=== PATIENT | female | born 1960 | race Caucasian/White ===

== ENCOUNTER 2017-04-16 09:26 | Day surgery (SDC) | payer OTHER ==
[~2017-04-16 09:26] MED LIST: Buffered Lidocaine 0.9% SYRIN* 5 ML/SYR SYRINGE INTRADERM ONE
[2017-04-16] MEDS ORDERED: ceFAZolin 2 GM PREMIX (*) 2 GM/50 ML BAG IVPB ONE (09:32)
[2017-04-16] MEDS ORDERED: Buffered Lidocaine 0.9% SYRIN* 5 ML/SYR SYRINGE ONE (09:32)
[2017-04-16] MEDS ORDERED: Midazolam* 1 MG/ML 2 ML VIAL (2 MG) ONE (09:43)
[2017-04-16] MEDS ORDERED: fentaNYL* 50 MCG/ML 2 ML VIAL (100 MCG VIAL) ONE (09:43)
[2017-04-16] MEDS ORDERED: Famotidine IV* 10 MG/ML 2 ML (20 mg) ONE (10:10)
[2017-04-16] MEDS ORDERED: Famotidine IV* 10 MG/ML 2 ML (20 mg) IV SLOW PU ONE (10:13)
[2017-04-16] MEDS ORDERED: DiMENhydriNATE IV* 50 MG/ML VIAL IV PUSH PRN (10:14)
[2017-04-16] MEDS ORDERED: oxyCODONE TAB* 5 MG TAB PO PRN (10:14)
[2017-04-16] MEDS ORDERED: Naloxone* 0.4 MG/ML 1 ML VIAL IV PRN (10:14)
[2017-04-16] MEDS ORDERED: Acetaminophen TAB* 325 MG PO PRN (10:14)
[2017-04-16] MEDS ORDERED: Bupivacaine 0.25% SDV* 30 ML ONE (10:23)
[2017-04-16] MEDS ORDERED: KETAMINE HCL* 50 MG/ML 10 ML VIAL ONE (10:58)
[2017-04-16] MEDS ORDERED: Ondansetron INJ* 2 MG/ML VIAL ONE (11:01)
[2017-04-16] MEDS ORDERED: Dexamethasone IV* 4 MG/ML 1 ML (4 MG) ONE (11:01)
[2017-04-16] MEDS ORDERED: Propofol* 10 MG/ML 20 ML BTL IV PUSH ONE ×2 (11:01→11:36)
[2017-04-16] MEDS ORDERED: Lidocaine 2% PF * 5 ML VIAL ONE (11:01)
[2017-04-16] MEDS ORDERED: Ketorolac INJ* 30 MG/ML 1 ML VIAL ONE (11:01)
[2017-04-16 12:57] VITALS: BP 101/59
--- NOTE | 2017-04-17 11:15 | OP ---
DATE OF OPERATION: 04/16/17 - [facility] DATE OF : 62 SURGEON: Joo Kumar MD JUNIOR PROJECT COORDINATOR: MARILIN Pruett. An mailroom assistant was needed for the entirety of the procedure to aide in positioning of the arm and retraction. ANESTHESIOLOGIST: Dr. Beltran. ANESTHESIA: Local MAC. PRE-OP DIAGNOSES: Significant left median nerve neuritis secondary to endoscopic carpal tunnel release followed by mini-open carpal tunnel release. POST-OP DIAGNOSES: Significant left median nerve neuritis secondary to endoscopic carpal tunnel release followed by mini-open carpal tunnel release with compression of the median nerve under the transverse carpal ligament. OPERATIVE PROCEDURE: Left revision carpal tunnel release with nerve wrapping via Avance nerve wrap and hypothenar fat pad transfer. INDICATIONS: Karley had a couple of attempts to release the carpal tunnel. She has been left with terrible neuritic pain in the median nerve distribution. It has been about 6 months since last surgery. She is not improving whatsoever. All of her prior incisions were very small. The first attempt was endoscopic. The second was a very small incision in the palm. I talked to her about doing a full extensile approach to release the carpal tunnel and to do neurolysis. If there is an injury to the median nerve, I would repair with a graft; otherwise, I would plan on wrapping the nerve and doing a hypothenar fat pat transfer. She understood the risks and benefits. She wanted to proceed. She understands there is a chance that she still have neuritic-type pain. ESTIMATED BLOOD LOSS: 2 mL. COMPLICATIONS: None. FINDINGS: There was a 1-cm segment where the nerve is very compressed right under the transverse carpal ligament creating an hourglass type shape to the nerve. DESCRIPTION OF PROCEDURE: Karley was seen in the preoperative holding area. The correct side, site, and procedure were identified. We came back to the operating room. She got some anesthesia, I infiltrated 0.25% plain Marcaine. The arm was prepped and draped in the usual fashion and time-out was performed. I began by making incorporating the prior incision in the palm into a longitudinal incision over the carpal tunnel. This was brought back in Prashanth- type fashion over the ulnar side of the wrist. Dissection was carried down, the fascia proximally was released, exposing the nerve proximally. This was carried down through the carpal tunnel where all the fascia and scar tissue was released to expose the median nerve. There was an area of about a cm to 2 cm right over the carpal tunnel where the nerve was very tight and the never was frankly compressed after I released it. Release was carried into the palm. I then worked through in the scar tissue and performed a complete neurolysis of the median nerve all the way from where it branched the common digital nerves up to the distal forearm area. The motor branch was identified. This was protected throughout the course. I went ahead and performed a complete neurolysis of the median nerve. The motor branch was identified and protected throughout the entirety of the case. I was clear the median nerve could not have been cut all the way down to third common digital nerve. There was the segment where it was hourglass shaped where it had been frankly compressed. At this point, the neurolysis was done. I had a couple of vessel loops around the nerve. I went ahead and measured the nerve and selected a 7 mm x 40 mm Avance nerve wrap. This was opened up and moistened and then placed around the nerve with a background in place. I went ahead and set appropriate tension and then I secured the proximal end of the nerve wrap edges together with one 9-0 nylon suture. I then secured the edges of the distal nerve wrap with another 9-0 nylon suture. This was all done with using 3.5 mm loop magnification and micro instruments. I then placed one more 9 -0 nylon in the center of the nerve wrap taking great care and under direct visualization making sure I did not incorporate the nerve into the nerve wrap. Once all 3 of the 9-0 [address] in place, the nerve was wrapped excellently. The area was protected. I then came ulnar and released the hypothenar fat pad superficially and distally and left to detach proximally and ulnarly. I then transposed this radially and secured it to the radial sided of the transverse carpal ligament with multiple 4-0 Vicryl sutures. This covered the nerve excellently. At this point, everything was looking good. We irrigated out the wound. Skin was closed with 4-0 nylon suture. Wound was dressed with Xeroform, 4x4's, sterile Webril, and a cock-up wrist splint was applied. The tourniquet was deflated and the hand pinked up immediately. She was awoken up and taken to the recovery room in stable condition. [id number]/[facility] #: [id number] JOSE
== END 2017-04-16 12:57 | disposition home or self-care (01) ==
LOC: OR 09:26
PROVIDERS: ATTEND Orthopaedic Surgery Hand Surgery
DX: G56.12 Other lesions of median nerve, left upper limb (principal); M32.9 Systemic lupus erythematosus, unspecified; J44.9 Chronic obstructive pulmonary disease, unspecified; M19.90 Unspecified osteoarthritis, unspecified site; F41.9 Anxiety disorder, unspecified; E27.3 Drug-induced adrenocortical insufficiency; Z87.891 Personal history of nicotine dependence
CPT/HCPCS: C1763; J0690; J1100; J1885; J2250; J2405; J2704; J3010

== ENCOUNTER 2017-08-14 10:32 | Emergency (ER) | payer OTHER ==
[2017-08-14 10:51] VITALS: BP 104/63
--- NOTE | 2017-08-14 10:57 | UC ---
Hand/Wrist HPI - HPI Summary HPI Summary: had a machine fall on her R hand at work. notes some swelling base of 4th/5th finger areas plus an abrasion. no limited use. tetanus is within 10 years - History Of Current Complaint Chief Complaint: UCUpperExtremity Stated Complaint: WC S/P RIGHT HAND INJURY Time Seen by Provider: 08/14/17 10:51 Hx Obtained From: Patient Hx Last Menstrual Period: age 44 Onset/Duration: Sudden Onset Pain Intensity: 7 Character Of Pain: Aching Aggravating Factor(s): Movement Alleviating Factor(s): Nothing - Allergies/Home Medications Allergies/Adverse Reactions: Allergies Allergy/AdvReac Type Severity Reaction Status Date / Time Adhesive Tape Allergy Rash Verified 08/14/17 10:46 Home Medications: Home Medications amLODIPine TAB* [Norvasc 5 mg TAB*] 5 mg PO DAILY 08/14/17 [History Confirmed ] predniSONE TAB* [Deltasone TAB*] 5 mg PO DAILY 08/14/17 [History Confirmed 08/14] PMH/Surg Hx/FS Hx/Imm Hx - Additional Past Medical History Additional PMH: RA, Lupus, Raynaudes, low BP - Surgical History Surgical History: Yes Surgery Procedure, Year, and Place: 1981, [place] carpal tunnel x3, [place], [place] - Social History Occupation: Employed Full-time Alcohol Use: None Alcohol Amount: social Substance Use Type: Marijuana Substance Use Comment - Amount & Last Used: Will smoke marijuana for pain; last time bid daily Smoking Status (MU): Former Smoker Amount Used/How Often: pack q 3 days When Did the Patient Quit Smoking/Using Tobacco: 03/2014 - Immunization History Hx Tetanus, Diphtheria Vaccination: Yes Vaccination Up to Date: Yes Review of Systems Constitutional: Negative Skin: Negative Eyes: Negative ENT: Negative Respiratory: Negative Cardiovascular: Negative Gastrointestinal: Negative Genitourinary: Negative Motor: Negative Neurovascular: Negative Musculoskeletal: Arthralgia - RA, Other: - pain. swelling R hand Neurological: Negative Psychological: Negative Is Patient Immunocompromised?: Yes All Other Systems Reviewed And Are Negative: Yes Physical Exam Triage Information Reviewed: Yes Appearance: Well-Appearing Vital Signs: Initial Vital Signs Temp 98.8 F 08/14/17 10:43 Pulse 71 08/14/17 10:43 Resp 16 08/14/17 10:43 BP 104/63 08/14/17 10:43 Pulse Ox 97 08/14/17 10:43 Eyes: Positive: Conjunctiva Clear ENT: Positive: Normal ENT inspection Neck: Positive: Supple, Nontender Respiratory: Positive: Lungs clear, Normal breath sounds Cardiovascular: Positive: RRR, No Murmur Abdomen Description: Positive: Nontender, No Organomegaly, Soft Bowel Sounds: Positive: Present Musculoskeletal: Positive: Other: - RUE: hand with mild dorsal swelling, abrasion and tenderness. s/v/m is intact. rest of RUE is atrumatic. Neurological: Positive: Alert Psychological: Positive: Age Appropriate Behavior Skin Exam: Normal Diagnostics - Radiology No standard instances Xray Interpretation: No Acute Changes Radiology Interpretation Completed By: Radiologist - Hand Hand/Wrist Course/Dx - Course Course Of Treatment: no fx/dislocation. no concern for infection - Differential Dx/Diagnosis Provider Diagnoses: Contusion and abrasion R hand Discharge - Sign-Out/Discharge Documenting (check all that apply): Discharge/Admit/Transfer - Discharge Plan Condition: Stable Disposition: HOME Patient Education Materials: Contusion in Adults (ED), Abrasion (ED) Forms: *Work Release Referrals: Moises Rosario MD [Primary Care Provider] - If Needed - Billing Disposition and Condition Condition: STABLE Disposition: HOME
--- NOTE | 2017-08-14 11:22 | RAD ---
Indication: Right hand pain. 2 views of the right hand demonstrates no fracture. No other bone or joint abnormality is noted. IMPRESSION: No fracture of the right hand is noted.
== END 2017-08-14 11:19 | disposition home or self-care (01) ==
LOC: UCCORT 10:32
DX: S60.511A Abrasion of right hand, initial encounter (principal); W31.9XXA Contact with unspecified machinery, initial encounter; Y93.9 Activity, unspecified; Y92.9 Unspecified place or not applicable; Y99.0 Civilian activity done for income or pay; M06.9 Rheumatoid arthritis, unspecified; M32.9 Systemic lupus erythematosus, unspecified; Z87.891 Personal history of nicotine dependence
CPT/HCPCS: 99212; G0463

== ENCOUNTER 2018-05-04 13:17 | Emergency (ER) | payer BC, OTHER ==
[2018-05-04 13:31] VITALS: BP 127/67
--- OUTSIDE RECORDS SUMMARY | 2018-05-04 13:52 | XMS REPORT | Continuity of Care Document ---
:1960 Author Organization [facility] Address [address], [place] [id number] Phone Care Team Providers Name Role Phone Rahul Woods PA-C Unavailable Unavailable Allergies, Adverse Reactions, Alerts Substance Reaction Status No Known Allergies Active Medications Medication Instructions Dosage Effective Dates Status Comments (start - stop) hydroxychloroquine 200 mg take 1 tablet by - Active tablet oral route in am and half tab at night daily hydroxyzine HCl 25 mg take 1 tablet by 25 MG - Active tablet oral route 3 times every day leflunomide 10 mg tablet take 1 tablet by 10 MG - Active oral route every day with food leucovorin calcium 10 mg take 1 tablet by 10 MG - Active tablet oral route every week 8-12 hours after taking methotrexate amlodipine 2.5 mg tablet TAKE 1 TABLET BY 2.5 MG - Active ORAL ROUTE EVERY DAY prednisone 5 mg tablet TAKE 1 TABLET BY 5 MG - Active ORAL ROUTE EVERY DAY folic acid 1 mg tablet TAKE 2 TABLET BY 2 MG - Active ORAL ROUTE EVERY DAY Aspirin Low Dose 81 mg take 1 tablet by 81 MG - Active tablet,delayed release oral route every day nabumetone 500 mg tablet take 2 tablet by 1000 MG - Active oral route 2 times every day Problems Condition Effective Dates (start - Clinical Status Comments stop) 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 Sicca syndrome, unspecified Raynaud's syndrome without gangrene 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 Other senior living (current) drug therapy Systemic lupus erythematosus, unspecified 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 Other senior living (current) drug therapy Sicca syndrome, unspecified Sicca syndrome, unspecified Raynaud's syndrome without gangrene snf current use of systemic steroid Other senior living (current) drug therapy 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 Raynaud's syndrome without gangrene Sicca syndrome, unspecified 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 Other termination clerk (current) drug therapy Raynaud's syndrome without gangrene snf current use of systemic steroid Other termination clerk (current) drug therapy Sicca syndrome, unspecified Vitamin D deficiency Sicca syndrome, unspecified Other termination clerk (current) drug therapy 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 Other termination clerk (current) drug therapy Sicca syndrome, unspecified Systemic lupus erythematosus, unspecified Sicca syndrome, unspecified Raynaud's syndrome without gangrene Rheumatoid arthritis, unspecified Other termination clerk (current) drug therapy snf current use of systemic steroid Ataxia, 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 Systemic lupus erythematosus, unspecified Sicca syndrome, unspecified Raynaud's syndrome without gangrene Other senior living (current) drug therapy Ataxia, 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 Systemic lupus erythematosus, unspecified Sicca syndrome, unspecified Raynaud's syndrome without gangrene Other senior living (current) drug therapy 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 Systemic lupus erythematosus, unspecified Other termination clerk (current) drug therapy Rheumatoid arthritis, unspecified Systemic lupus erythematosus, unspecified Sicca syndrome, unspecified Raynaud's syndrome without gangrene Antiphospholipid syndrome Encounter for therapeutic drug level monitoring 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 Systemic lupus erythematosus, unspecified Sicca syndrome, unspecified Raynaud's syndrome without gangrene Encounter for therapeutic drug level monitoring Rheumatoid arthritis - Active Lupus erythematosus - Active Rheumatoid factor positive - Active Procedures Procedure Date No information Results Test Name Date and Time Measure Units Reference Range Abnormal Flag Status Comments No information Advance Directives Directive Yes / No Effective Date File Name No information Encounters Encounter Practice Location Reason(s) Diagnoses Date Provider Providers Description For Visit Copied on Encounter Arthritis Arthritis [facility]RIST[facility] 9 5794 PLLC, 5794 PLLC [facility], [place], [place], [id number], [id number], [place]. [place] tel:[phone] tel:[phone] Arthritis Arthritis Rheu arthritis [facility] Specialist: [facility] rheu factor 2 CHRISTIANNE Lacey Associates [facility] site w/o 9 5794 , 1259 PLLC, 5794 PLLC org/sys [facility] [address], [facility] involvSicca [place], [place], [place], syndrome, [place], [address]. [place], unspecifiedRay [place], tel:[phone] [place], naud's [id number], [id number] [id number], syndrome [place]. lting [place] without tel:[phone] Provider: tel:[phone] [facility] [phone] Joo [id number] term current Stacy MEYER, use of [address], senior living [place], [place], (current) drug [address]. therapy tel:[phone] alist: Eufemia Atkinson MD, [address] [facility], [address] [facility], [place], [address]. tel:[phone] ring Provider: Lesley Combs MD, [address] [facility], [place], [place], [id number]. tel:[phone] Arthritis Arthritis [facility] CHRISTIANNE Lacey 8 Vicente. PLLC, 5794 PLLC 5794 [facility], [place], [place], [id number], [id number], [place]. tel:[phone] tel:[phone] Arthritis Arthritis Systemic lupus Nov- Robert MEYER Consulting [facility], Juan. Provider: Associates Associates unspecifiedRhe 8 5794 Joo PLLC, 5794 PLLC u arthritis w Angel Kumar MD, [facility] rheu factor [place], 16 [facility] site w/o [place], Claritza [place], org/sys Dr Lukas [place] , [place], involvOther [id number], [place], [place], [id number], [place]. [address]. [place] (current) drug tel:[phone] tel:[phone] tel:[phone] therapySicca [phone] [id number] [id number] syndrome, alist: unspecified Eufemia Atkinson MD, [address] [facility], [address] [place] [facility], [place], [address]. tel:[phone] ring Provider: Lesley Combs MD, [address] [facility], [place], [place], [id number]. tel:[phone] Arthritis Arthritis Sicca Anson-[facility] syndrome, CHRISTIANNE Kay. Provider: Associates Associates unspecifiedRay 8 5794 [facility], 5794 PLLC adeola's [facility] Palencia MD, [facility] syndrome [place], [address] [place], without [place], Standart [place], gangreneLong [place], Ave, [place], term current [id number], [place], [place], [id number], [place]. [address]. [place] systemic tel:[phone] tel:[phone] tel:[phone] steroidOther [id number] [id number] senior living alist: (current) drug Derek therapy Armaan, [address] , [place], [address]. tel:[phone] lting Provider: Joo Kumar MD, [address], [place], [address]. tel:[phone] alist: Eufemia Atkinson MD, [address] [facility], [address] [place] [facility], [place], [address]. tel:[phone] ring Provider: Lesley Combs MD, [address] [place], [place], [id number]. tel:[phone] Arthritis Arthritis RA w/ Apr- [facility] rheumatoid 2-201 CHRISTIANNE Kay. Provider: Abhijit Lacey factor of 8 5794 [facility], 5794 PLLC multiple sites Angel Palencia MD, [facility] w/o organ [place], [address] [place], involvementRay [place], Standart [place], naud's [place], Ave, [place], syndrome [id number], [place], [place], [id number], [place]. [address]. [place] gangreneSicca tel:+ tel:+ tel:[phone] syndrome, [phone] [id number] unspecifiedLon alist: g term current Derek use of Armaan, systemic [address] termination clerk [address], (current) [place], [address]. tel:[phone] lting Provider: Joo Kumar MD, [address] [facility] [place], [address]. tel:[phone] Provider: Lesley Combs MD, [address] [place], [place], [id number]. tel:[phone] Arthritis Arthritis Raynaud's Nov-0 [facility] syndrome 6 CHRISTIANNE Kay. Provider: Abhijit Lacey without 7 5794 [facility], 5794 PLLC gangreneLong Angel Palencia MD, [facility] term current [place], [address] [place], use of [place], Standart [place], systemic [place], Ave, [place], steroidOther [id number], [place], [place], [id number], [place]. [address]. [place] (current) drug tel:+[phone] tel:+315 tel:[phone] therapySicca [phone] [id number] 875591 syndrome, alist: unspecifiedVit Derek Crook, deficiency [address] , [place], [address]. tel:[phone] ring Provider: Lesley Combs MD, [address] [place], [place], [id number]. tel:[phone] Arthritis Arthritis Sicca Robert MEYER Consulting [facility] syndrome, Juan. Provider: Abhijit Lacey unspecifiedOth 7 5794 [facility], 5794 PLLC er termination clerk Angel Palencia MD, Angel (current) drug [place], [address] [place], therapy [place], Stand[place], [place], [place], [place], [id number], [place], [place], [id number], [place]. [address]. [place] tel:+[phone] tel:+ tel:[phone] [phone] ring Provider: Lesley Combs MD, [address] [place], [place], [id number]. tel:[phone] Arthritis Arthritis RA / [facility] rheumatoid MD [place]. Provider: Abhijit Lacey factor of 7 5794 [facility], 5794 PLLC multiple sites Angel Palencia MD, Angel w/o organ [place], [address] [place], involvementOth [place], Standart [place], er termination clerk [place], Ave, [place], (current) drug [id number], [place], [place], [id number], [place]. [address]. [place] syndrome, tel:[phone] tel:+315 tel:+ unspecified [phone] 087202 ring Provider: Lesley Combs MD, 5794 [facility], [place], [id number]. tel:[phone] Arthritis Arthritis Systemic lupus [facility] erythematosus, MD [place]. Provider: Abhijit Lacey unspecifiedSic 7 5794 [facility], 5794 PLLC ca syndrome, Angel Palencia MD, Angel unspecifiedRay [place], [address] [place], naud's [place], Standart [place], syndrome [place], Ave, [place], without [id number], [place], [place], [id number], [place]. [address]. [place] toid tel: tel: tel: arthritis, [phone] [phone] unspecifiedOth ring er termination clerk Provider: (current) drug Lesley therapyLong [place] term current MD, 5794 use of [place] systemic [place], steroidAtaxia, [place], unspecified [place], [id number]. tel: [phone] Arthritis Arthritis RA w/ Asher MEYER Consulting [facility] rheumatoid Dod. 310 Provider: Associates Associates factor of [address] [facility], 5794 PLLC multiple sites Talha Parmar MD, [facility] w/o organ [place], [address] [place], involvementSys [place], Standart [place], temic lupus [id number], Ave, [place], erythematosus, [place]. [place], [place], [id number], unspecifiedSic tel: [phone]. [place] ca syndrome, [address] tel: tel: unspecifiedRay [phone] [id number] naud's ring syndrome Provider: without Dodji gangreneOther Asher termination clerk , [address] (current) [address], therapyAtaxia, [place], unspecified [place], [id number]. tel: [phone] Arthritis Arthritis RA w/ Asher MEYER Consulting [facility] rheumatoid Dod. 310 Provider: Associates Associates factor of [address] [facility], 5794 PLLC multiple sites Talha Parmar MD, [facility] w/o organ [place], [address] [place], involvementSys [place], Standart [place], temic lupus [id number], Ave, [place], erythematosus, [place]. [place], [place], [id number], unspecifiedSic tel: [phone]. [place] ca syndrome, 478[address] tel: tel:[phone] unspecifiedRay [id number] 692048 naud's ring syndrome Provider: without Dodji gangrenVee Sterling termination clerk , [address] (current) drug [address], therapy [place], [place], [id number]. tel:+ [phone] Arthritis Arthritis RA w/ Asher MEYER Consulting [facility] rheumatoid [facility]. 310 Provider: Associates Associates factor of [address] [place] [facility], 5794 PLLC multiple sites Talha Parmar MD, [facility] w/o organ [place], [address] [place], involvementSys [place], Standart [place], temic lupus [id number], Ave, [place], erythematosus, [place]. [place], [place], [id number], unspecifiedOth tel:+ [phone]. [place] er termination clerk [id number] tel: tel:+ (current) drug [phone] [phone] therapy ring Provider: Salvador Sterling MD, [address], [place], [place], [id number]. tel: [phone] Arthritis Arthritis Rheumatoid May- Asher MEYER Consulting [facility] arthritis, [facility]. 310 Provider: Associates Associates unspecifiedSys [address] [facility], 5794 PLLC temic lupus Talha Parmar MD, [facility] erythematosus, [place], [address] [place], unspecifiedSic [place], Standart [place], ca syndrome, [id number], Ave, [place], unspecifiedRay [place]. [place], [place], [id number], naud's tel: [phone]. [place] syndrome [id number] tel: tel: without [phone] [phone] gangreneAntiph ring ospholipid Provider: syndromeEncoun Salvador ter for Asher pierre MD, [address], monitoring [place], [place], [id number]. tel:+ [phone] Arthritis Arthritis RA w/ Asher MEYER Consulting [facility] rheumatoid [facility]. 310 Provider: Associates Associates factor of [address] [place] [facility], 5794 PLLC multiple sites Talha Parmar MD, [facility] w/o organ [place], [address] [place], involvementSys [place], Standart [place], temic lupus [id number], Ave, [place], erythematosus, [place]. [place], [place], [id number], unspecifiedSic tel:[phone]. [place] ca syndrome, [address] tel:+ tel:+0 unspecifiedRay [id number] 083990 naud's ring syndrome Provider: monica juan MD, [address], drug level [place], monitoring [place], [id number]. tel:[phone] Arthritis Arthritis Asher MEYER [facility] 6-201 [facility]. 310 Provider: Associates Associates [address] [facility], 5794 PLLC Agata, Asher Simental MD, [address] [place], [place], [address], [place], [id number], [place], [place], [place]. [place], [id number], tel:[phone]. [place] [address] tel: tel:[phone] 102208 Family History Family Member Diagnosis Age At Onset Father Cancer, esophageal Immunizations Vaccine Date Status Comments Pneumococcal polysaccharide administered Source: Source Unspecified PPV23 Influenza, split virus, administered Source: Source Unspecified injectable, 3 years and older Fluvirin [id number] Payers Payer name Insurance type Covered alliance party ID Authorization(s) [facility] [id number] Social History Type Description Quantity Date Captured Comments Alcohol Use Details Unknown Caffeine Use Details Unknown Tobacco Use Status Smoking Status Unknown Sex Female Vital Signs Date / Height Weight BMI Pulse Blood Temperature Respiratory Body Head BMI Pulse Inhaled Time: Rate Pressure Rate Surface Circumference percentile Ox Ox Area No information Chief Complaint And Reason For Visit No information Reason For Referral Reason For Referral No information Plan Of Treatment Date Type Action Status Goal Tobacco cessation counseling completed Goal Tobacco cessation counseling completed Goal Tobacco cessation counseling completed Goal Tobacco cessation counseling completed Goal Tobacco cessation counseling completed Referral Ordered: ordered Teri Mendoza -Neurology (related to Ataxia, unspecified) Referral Referred To: ordered Teri Mendoza [address], [phone] Ordered: Referrals: Neurology. Teri Mendoza. Consult Appointment Nevaeh Aguilar BOOKED History Of Present Illness Encounter Date Complaint History Of Present Illness No information Functional Status Date Functional Assessment No information Medications Administered Medication Instructions Dosage Effective Dates (start - stop) Status Comments No information Instructions Date Instruction Additional Information Avoid sun and use high SPF sunblock Discussed importance of holding DMARDs/ biologics if patient develops an infection and to notify the treating physician Labs ordered to check disease activity. Reviewed importance of compliance/adherence to medications prescribed Diet: avoid alcohol Avoid live vaccines Risks/benefits of medications reviewed Labs ordered to check blood counts, liver and kidney functions to monitor safety of medication. Discussed / Reviewed Labs call if symptoms worsen maintain adequate water intake every day Maintain adequate core warmth. Wear warm, wind-proof gloves and boots. Risks/benefits of medications reviewed Avoid sun and use high SPF sunblock For sleep, the need to add adequate relaxation, rest and exercise was discussed Labs ordered to check disease activity. Labs ordered to check blood counts, liver and kidney functions to monitor safety of medication. Discussed / Reviewed Labs Patient plan printed and given along with recommendations lower mtx to 4 weekly Discussed importance of holding DMARDs/ biologics if patient develops an infection and to notify the treating physician Labs ordered to check disease activity. Labs ordered to check blood counts, liver and kidney functions to monitor safety of medication. Reviewed importance of compliance/adherence to medications prescribed Diet: avoid alcohol Avoid live vaccines Risks/benefits of medications reviewed call if symptoms worsen maintain adequate water intake every day Discussed / Reviewed Labs Patient plan printed and given along with recommendations Discussed / Reviewed Labs Labs ordered to check blood counts, liver and kidney functions to monitor safety of medication. Labs ordered to check disease activity. Diet: Instructed on appropriate calcium and vitamin D intake. Discussed importance of holding DMARDs/ biologics if patient develops an infection and to notify the treating physician Avoid sun and use high SPF sunblock Risks/benefits of medications reviewed Avoid live vaccines Diet: avoid alcohol Reviewed importance of compliance/adherence to medications prescribed Maintain adequate core warmth. Wear warm, wind-proof gloves and boots. maintain adequate water intake every day call if symptoms worsen Labs ordered to check disease activity. Labs ordered to check blood counts, liver and kidney functions to monitor safety of medication. Reviewed importance of compliance/adherence to medications prescribed Diet: avoid alcohol Avoid live vaccines Risks/benefits of medications reviewed Discussed importance of holding DMARDs/ biologics if patient develops an infection and to notify the treating physician Diet: Instructed on appropriate calcium and vitamin D intake. Discussed / Reviewed Labs Patient plan printed and given along with recommendations call if symptoms worsen Maintain adequate core warmth. Wear warm, wind-proof gloves and boots. maintain adequate water intake every day Patient plan printed and given along with recommendations continue same medication plan Risks/benefits of medications reviewed Discussed importance of holding DMARDs/ biologics if patient develops an infection and to notify the treating physician Educated regarding diagnosis and treatment options. call if symptoms worsen Labs ordered to check disease activity. lower mtx to 8 week.readd prednisone to 5mg day Labs ordered to check blood counts, liver and kidney functions to monitor safety of medication.
--- OUTSIDE RECORDS SUMMARY | 2018-05-04 13:52 | XMS REPORT | Continuity of Care Document ---
:1960 External Reference #:[id number] Author Name Nilda Fabian Care Team Providers Name Role Phone Moises Rosario MD Primary Care Physician Unavailable Payers Type Date Identification Numbers Payment Provider Subscriber Onset: 2015 Policy Number: [id number] [facility] Insurance Fund Nevaeh Aguilar Group Name: Alexys [phone] 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 2, then 1 po tid Amlodipine Besylate / Active Tablets 2.5mg 1 po Robert, 0000 qday Juan Johnson M.D. Folic Acid / Active Tablets 1mg 1 po Robert, 0000 qday Juan Johnson M.D. Methotrexate / Active Tablets 2.5mg 1 po Unknown 0000 qday Hydroxyzine HCL / Active Tablets 10mg 60tab 1 by Unknown 0000 s mouth three times a day Pilocarpine HCL / Active Tablets 5mg 60tab 1 by Unknown 0000 s mouth every day Prednisone 00/ Active Tablets 5mg 1 by Unknown 0000 mouth every day Hydroxychloroquine / Active Tablets 200mg take Unknown Sulfate 0000 one tablet by mouth twice a day Aspirin Adult Low / Active Tablets 81mg take Unknown Strength 0000 DR one tablet by mouth daily. Tramadol 04/16/ Hx Tablets 37.5-325m 30tab 1-2 tab Joo Hydrochloride/Acetam 2018 - g s by MD Stacy inophen 04/23/ mouth 2018 every 4-6 hours as needed Vitamin D / Hx Capsules [id number] 1 po Robert, (Ergocalciferol) 0000 - qday Juan 11/05/ Maeve Johnson 2018 Ibuprofen 200 / Hx Tablets 200mg as Unknown 0000 - needed 2017 Medications Administered in Office Medication Date Status Form Strength Qnty SIG Indications Ordering Provider Celestone 3 mg Administered Injection Joo and 3mg 018 MD Stacy Immunizations Description No Information Available Vital Signs Date Vital Result Comment 04/18/2018 11:05am Height 60 inches 5'0" Weight 145.00 lb BP Systolic 138 mmHg BP Diastolic 92 mmHg Respiratory Rate 15 /min Body Temperature 96.8 F Pain Level 8 BMI (Body Mass Index) 28.3 kg/m2 01/02/2018 2:07pm Height 60 inches 5'0" Weight 141.00 lb BP Systolic 132 mmHg BP Diastolic 62 mmHg Respiratory Rate 15 /min Body Temperature 97.8 F Pain Level 8 BMI (Body Mass Index) 27.5 kg/m2 11/16/2017 2:50pm Height 60 inches 5'0" Weight 150.00 lb Heart Rate 60 /min BP Systolic Sitting 102 mmHg BP Diastolic Sitting 64 mmHg Respiratory Rate 12 /min Pain Level 10 BMI (Body Mass Index) 29.3 kg/m2 05/29/2017 10:52am Height 60 inches 5'0" Weight 153.00 lb Heart Rate 72 /min BP Systolic Sitting 102 mmHg BP Diastolic Sitting 68 mmHg Respiratory Rate 16 /min Pain Level 3 BMI (Body Mass Index) 29.9 kg/m2 05/01/2017 8:19am Height 60 inches 5'0" Weight 153.38 lb Heart Rate 66 /min BP Systolic Sitting 120 mmHg BP Diastolic Sitting 72 mmHg Respiratory Rate 16 /min Pain Level 10 BMI (Body Mass Index) 30.0 kg/m2 04/24/2017 8:00am Height 60 inches 5'0" Weight 152.00 lb Heart Rate 66 /min BP Systolic Sitting 104 mmHg BP Diastolic Sitting 60 mmHg Respiratory Rate 12 /min Body Temperature 98.9 F Pain Level 8 BMI (Body Mass Index) 29.7 kg/m2 04/03/2017 11:48am Height 60 inches 5'0" Weight 140.00 lb Heart Rate 76 /min BP Systolic Sitting 122 mmHg BP Diastolic Sitting 74 mmHg Respiratory Rate 16 /min Pain Level 7 BMI (Body Mass Index) 27.3 kg/m2 03/06/2017 8:44am Height 60 inches 5'0" Weight 140.00 lb Heart Rate 76 /min BP Systolic Sitting 124 mmHg BP Diastolic Sitting 74 mmHg Respiratory Rate 16 /min Pain Level 6 BMI (Body Mass Index) 27.3 kg/m2 01/23/2017 10:23am Height 60 inches 5'0" Weight 140.00 lb BP Systolic Sitting 130 mmHg BP Diastolic Sitting 76 mmHg Respiratory Rate 17 /min Pain Level 6 BMI (Body Mass Index) 27.3 kg/m2 Results Description No Information Available Procedures Date Code Description Status 04/18/2018 19098 Inject Tendon Sheath Or Ligament Aponeurosis Eg Plantar Completed Fascia 11/16/2017 00198 Inject Tendon Sheath Or Ligament Aponeurosis Eg Plantar Completed Fascia 04/16/2017 09513 Carpal Tunnel Release Completed 04/16/2017 08776 Carpal Tunnel Release Completed 04/16/2017 14535 Skin Tissue Rearrange To 10 SQ CM Completed FRHD/CHK/CHN/MTH/NK/Ax/Gen/H/FT Encounters Type Date Location Provider Dx Diagnosis Office Visit 01/02/2018 Orthopedic Yamileth Ramsay G56.02 Carpal tunnel 2:[facility] syndrome, left upper limb G56.02 Carpal tunnel syndrome, left upper limb Office Visit 11/16/2017 2:45p Orthopedic Joo G56.02 Carpal tunnel [facility] Franc[facility] Kumar MD syndrome, left AT [place] upper limb M65.312 Trigger thumb, left thumb Office Visit 03/06/2017 8:30a Orthopedic Joo G56.02 Carpal tunnel [facility] Kumar MD syndrome, left AT [place] upper limb G56.02 Carpal tunnel syndrome, left upper limb Office Visit 01/23/2017 9:30a Orthopedic Joo G56.02 Carpal tunnel [facility] Kumar MD syndrome, left AT [place] upper limb G56.02 Carpal tunnel syndrome, left upper limb Plan of Treatment 04/18/2018 - Yamileth Ramsay M.D.G56.02 Carpal tunnel syndrome, left upper limbNew Medication:Gabapentin 300 mg - 1po day 1, 1 po bid day 2, then 1 po tidFollow up:Follow up: As [id number] Trigger thumb, left thumb
[2018-05-04 13:53] LABS: Influenza A Molecular NEGATIVE (Negative); Influenza B Molecular NEGATIVE (Negative)
--- NOTE | 2018-05-04 13:55 | UC ---
Cardiac HPI - HPI Summary HPI Summary: Per sales operations analyst: "SOB AND CHEST PAIN, PAIN OF RIBS AND UPPER CHEST. PAIN DOES NOT RADIATE. HAS HAD A DRY COUGH, RUNNY NOSE, CHILLS AND HAS FELT FEVERISH. BODY ACHES. GREEN SINUS DRAINAGE. NO N/V/D. ONSET OF SYMPTOMS ABOUT ONE WEEK AGO" -hasnt taken her meds in a week bc she wasnt feeling well. all of them. reorts that rheum meds make her feel worse when she is sick. doesnt use inhalers. quit smoking -here w/ friend Senia who is a good advocate for her -chest is discomfort. insists it is not her heart. no CAD hx. -no associated radiation. pain is b/l chest wall and equal, not greater on the left. no no diaphoreses. no n/v. - History of Current Complaint Chief Complaint: UCRespiratory Stated Complaint: CHEST TIGHTNESS Time Seen by Provider: 05/04/18 13:24 Hx Last Menstrual Period: age 44 Pain Intensity: 5 - Allergy/Home Medications Allergies/Adverse Reactions: Allergies Allergy/AdvReac Type Severity Reaction Status Date / Time Adhesive Tape Allergy Rash Verified 05/04/18 13:18 Home Medications: Home Medications D-Methorphan/PE/Acetaminophen [Theraflu Expressmax Cold-Cough] 1 liq PO PRN 12/12 [History] PMH/Surg Hx/FS Hx/Imm Hx Previously Healthy: Yes - Surgical History Surgical History: Yes Surgery Procedure, Year, and Place: 1981, [facility]. carpal tunnel x4 [place], [place] - Family History Known Family History: Positive: Hypertension - Social History Alcohol Use: None Alcohol Amount: social Substance Use Type: Marijuana Substance Use Comment - Amount & Last Used: Will smoke marijuana for pain; last time bid daily Smoking Status (MU): Former Smoker Amount Used/How Often: pack q 3 days When Did the Patient Quit Smoking/Using Tobacco: 03/2014 - Immunization History Hx Tetanus, Diphtheria Vaccination: Yes Vaccination Up to Date: Yes Review of Systems All Other Systems Reviewed And Are Negative: Yes Constitutional: Positive: Fever, Chills, Fatigue Skin: Positive: Negative Eyes: Positive: Negative ENT: Positive: Sore Throat, Nasal Discharge, Sinus Congestion Respiratory: Positive: Cough Cardiovascular: Positive: Chest Pain Gastrointestinal: Positive: Negative Genitourinary: Positive: Negative Motor: Positive: Negative Neurovascular: Positive: Negative Musculoskeletal: Positive: Myalgia Neurological: Positive: Negative Psychological: Positive: Negative Is Patient Immunocompromised?: No Physical Exam Triage Information Reviewed: Yes Appearance: Well-Appearing, Ill-Appearing - lying quitely on exam table. but perks up after nebulizer. speaks full snetnces and does not look like she is any resp distress., Thin Vital Signs: Initial Vital Signs Temp 99.5 F 05/04/18 13:21 Pulse 80 05/04/18 13:21 Resp 20 05/04/18 13:21 BP 127/67 05/04/18 13:21 Pulse Ox 95 05/04/18 13:21 Vital Signs Reviewed: Yes Eye Exam: Normal ENT: Positive: Pharynx normal - +PND, Nasal congestion, TMs normal, Uvula midline. Negative: TM bulging, TM dull, TM red, Tonsillar swelling, Tonsillar exudate, Hoarse voice, Sinus tenderness Neck exam: Normal Neck: Positive: Supple, Nontender, No Lymphadenopathy Respiratory: Positive: Chest non-tender - not reporduicible b/l., No respiratory distress, No accessory muscle use, Decreased breath sounds, Rhonchi - left infrascapular rhonchi, Wheezing. Negative: Crackles, Stridor Cardiovascular Exam: Normal Cardiovascular: Positive: RRR, No Murmur, Pulses Normal Abdominal Exam: Normal Abdomen Description: Positive: Nontender, Soft Bowel Sounds: Positive: Present Musculoskeletal Exam: Normal Neurological Exam: Normal Psychological Exam: Normal Skin Exam: Normal - Assessment/Plan Course Of Treatment: EKG: no acute disease. no ST/T changes. no AV/IV changes. -alb nebulizer treatment gives significant sx relief. she states "I feel great" . reports that all chest discomort resolved with nebulizer. -she has stopped the prednisone 5mgs daily 1 week ago. she does recall that her Dr did tell her in past not to stop that one abruptly, as this is common for her to do with all her meds. Quit smoking 3-4 yrs ago. never dx'd w/ COPD or given inhaler. recommend that she get tested for COPD. -sx are likely resp in nature. I suspect COPD and will treat w/ abx, albuterol and adv to restart prednisone. she agrees to go to ER if she does develop chest pain again. recommend she request instructions for proper use of alb MDI. -her friend Senia who is reliable and obviously very concerned about her assures me that she will check on her and make sure she gets to ER if sx change, worsen or persist. - Differential Diagnoses - Chest Pain Differential Diagnosis/HQI/PQRI: ACS, Chest Wall, Lower Respiratory Infection - Differential Diagnoses - Hypertension Differential Diagnosis/HQI PQRI: Myocardial Infarction - Differential Diagnoses - Palpitations Differential Diagnosis/HQI/PQRI: Coronary Artery Disease - Clinical Impression Provider Diagnosis: COPD exacerbation, Chest pain Discharge - Sign-Out/Discharge Documenting (check all that apply): Patient Departure All imaging exams completed and their final reports reviewed: Yes - Discharge Plan Condition: Stable Disposition: HOME Prescriptions: Albuterol HFA INHALER* [Ventolin HFA Inhaler*] 2 puff INH Q4H PRN 14 Days #1 mdi PRN Reason: Cough Amoxicillin PO (*) [Amoxicillin 875 MG (*)] 875 mg PO BID #20 tab Patient Education Materials: Acute Bronchitis (ED), COPD (Chronic Obstructive Pulmonary Disease) (ED) Referrals: Moises Rosario MD [Primary Care Provider] - 2 Days Additional Instructions: Please restart your prednisone. That and the albuterol will help your cough. sleep and rest. Please go to the ER via ambulance if your chest pain recurs. -Make sure to take a probiotic daily while on antibiotics to help prevent a potential complication of antibiotic use called c diff. Some well known brands that can be found OTC are florastor, align and [employer]. Make sure to complete the entire prescription unless advised otherwise by your health care provider. - Billing Disposition and Condition Condition: STABLE Disposition: Home
[2018-05-04] MEDS ORDERED: Albuterol 2.5 MG/3 ML NEB.SOL* (0.083%) INH ONE (14:05)
== END 2018-05-04 15:05 | disposition home or self-care (01) ==
LOC: UCCORT 13:17
DX: J44.1 Chronic obstructive pulmonary disease with (acute) exacerbation (principal); M79.10 Myalgia, unspecified site; R07.9 Chest pain, unspecified; R09.89 Other specified symptoms and signs involving the circulatory and respiratory systems; Z91.09 Other allergy status, other than to drugs and biological substances; Z87.891 Personal history of nicotine dependence
CPT/HCPCS: 71046; 93005; 99212; G0463

== ENCOUNTER 2019-03-13 09:26 | Day surgery (SDC) | payer SELFPAY ==
[~2019-03-13 09:26] MED LIST changes: +Acetaminophen TAB* 325 MG PO ONE; -Buffered Lidocaine 0.9% SYRIN* 5 ML/SYR SYRINGE INTRADERM ONE; +Buffered Lidocaine 1% SYRIN* 1 ML/SYRINGE INTRADERM ONE; +Famotidine IV* 10 MG/ML 2 ML (20 mg) IV ONE; +Gabapentin CAP(*) 300 MG PO ONE; +Lactated Ringers 1000 ML Bag* 1,000 ML IV SCH
[2019-03-13] MEDS ORDERED: Famotidine IV* 10 MG/ML 2 ML (20 mg) ONE (09:46)
[2019-03-13] MEDS ORDERED: Acetaminophen TAB* 325 MG ONE (09:46)
[2019-03-13] MEDS ORDERED: DiMENhydriNATE IV* 50 MG/ML VIAL IV PUSH PRN (09:58)
[2019-03-13] MEDS ORDERED: fentaNYL* 50 MCG/ML 2 ML VIAL (100 MCG VIAL) IV PRN (09:58)
[2019-03-13] MEDS ORDERED: diPHENhydraMINE IV* 50 MG/ML 1 ml VIAL (BENADRYL) IV PRN (09:58)
[2019-03-13] MEDS ORDERED: Naloxone* 0.4 MG/ML 1 ML VIAL IV PRN (09:58)
[2019-03-13] MEDS ORDERED: HYDROcodone/ACETAMIN 5-325 MG* 1 TAB PO PRN (09:58)
[2019-03-13] MEDS ORDERED: Gabapentin CAP(*) 300 MG ONE (10:00)
[2019-03-13] MEDS ORDERED: Midazolam* 1 MG/ML 2 ML VIAL (2 MG) ONE ×2 (10:09→10:45)
[2019-03-13] MEDS ORDERED: fentaNYL* 50 MCG/ML 2 ML VIAL (100 MCG VIAL) ONE (10:09)
[2019-03-13] MEDS ORDERED: Bupivacaine 0.25% SDV* 30 ML ONE (10:45)
[2019-03-13] MEDS ORDERED: Ketorolac INJ* 30 MG/ML 1 ML VIAL ONE (10:49)
[2019-03-13] MEDS ORDERED: Dexamethasone IV* 4 MG/ML 1 ML (4 MG) ONE (10:49)
[2019-03-13] MEDS ORDERED: Propofol* 10 MG/ML 20 ML BTL ONE (10:49)
[2019-03-13 11:51] VITALS: BP 112/64
--- NOTE | 2019-03-13 18:34 | OP ---
DATE OF OPERATION: 03/13/19 [facility] DATE OF : 62 SURGEON: Joo Kumar MD. TABLE FILLER: MARILIN Franks. ANESTHESIOLOGIST: Dr. Pryor. ANESTHESIA: Local MAC. PRE-OP DIAGNOSES: 1. Left trigger thumb. 2. Left thumb A1 tesha tendon sheath nodule. POST-OP DIAGNOSES: 1. Left trigger thumb. 2. Left thumb A1 tesha tendon sheath nodule. OPERATIVE PROCEDURES: 1. Left trigger thumb release. 2. Left thumb A1 tesha tendon sheath nodule excision. ESTIMATED BLOOD LOSS: 2 mL. COMPLICATIONS: None. FINDINGS: See above and below. DESCRIPTION OF PROCEDURE: Ms. Aguilar was seen in the preoperative holding area. The correct site, side, and procedures were identified. We came back to the operating room. The arm was prepped and draped in the usual fashion, and a time -out was performed. I made a 1 cm transverse incision over the A1 tesha. Dissection was carried down. Full-thickness flaps were raised off the tendon sheath. Ragnell retractors were placed. I went ahead and excised the nodule off the anterior aspect of the A1 tesha. This was sent as a specimen. After that was done, I incised the A1 tesha longitudinally with a 15-blade and this was completed distally and proximally with the tenotomy scissors. I confirmed the trigger thumb release. At this point, everything was looking very good. The wound was irrigated out. Skin was closed with 4-0 nylon suture. The wound was dressed with Xeroform, 4x4, and sterile Webril and an Gilamr bandage. She was taken to the recovery room in stable condition. [id number]/[facility] #: [id number] [facility]
== END 2019-03-13 12:12 | disposition home or self-care (01) ==
LOC: OREAST 09:26
PROVIDERS: ATTEND Orthopaedic Surgery Hand Surgery
DX: M65.312 Trigger thumb, left thumb (principal); M18.12 Unilateral primary osteoarthritis of first carpometacarpal joint, left hand; M06.9 Rheumatoid arthritis, unspecified; G56.02 Carpal tunnel syndrome, left upper limb; F41.9 Anxiety disorder, unspecified; J44.9 Chronic obstructive pulmonary disease, unspecified; I73.00 Raynaud's syndrome without gangrene; F17.210 Nicotine dependence, cigarettes, uncomplicated; Z79.52 Long term (current) use of systemic steroids; Z79.82 Long term (current) use of aspirin; Z79.899 Other long term (current) drug therapy
CPT/HCPCS: 88304; A9270-GY; J1100; J1885; J2250; J2704; J3010; J3490

== ENCOUNTER 2019-05-07 10:13 | Emergency (ER) | payer BC, OTHER ==
--- OUTSIDE RECORDS SUMMARY | 2019-05-07 10:24 | XMS REPORT | Continuity of Care Document ---
:1960 Author Organization [facility] Address [address] [place], [place] [id number] Phone Care Team Providers Name Role Phone Rahul Woods PA-C Unavailable Unavailable Allergies, Adverse Reactions, Alerts Substance Reaction Status No Known Allergies Active Medications Medication Instructions Dosage Effective Dates Status Comments (start - stop) PREDNISONE 5MG TABLETS TAKE 1 TABLET BY - Active MOUTH EVERY DAY hydroxychloroquine 200 TAKE 1 TABLET BY - Active mg tablet ORAL ROUTE IN AM AND HALF TAB AT NIGHT DAILY folic acid 1 mg tablet TAKE 2 TABLET BY 2 MG - Active ORAL ROUTE EVERY DAY hydroxyzine HCl 25 mg take 1 tablet by 25 MG - Active tablet oral route 3 times every day methotrexate sodium 2.5 TAKE 4 TABS ONE - Active mg tablet DAY PER WEEK) pramipexole 0.5 mg take 1 tablet by 0.5 MG - Active tablet oral route every 3 bedtimes omeprazole 20 mg take 1 capsule by 20 MG - Active capsule,delayed release oral route every day before a meal Aspirin Low Dose 81 mg take 1 tablet by 81 MG - Active tablet,delayed release oral route every day nabumetone 500 mg tablet take 2 tablet by 1000 MG - Active oral route 2 times every day prednisone 5 mg tablet take 1 tablet by 5 MG - No Longer oral route every Active day hydroxychloroquine 200 TAKE 1 TABLET BY - No Longer mg tablet ORAL ROUTE IN AM Active AND HALF TAB AT NIGHT DAILY Problems Condition Effective Dates (start - Clinical Status Comments stop) Raynaud's syndrome without gangrene 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 Sicca syndrome, unspecified Other mcfp (current) drug therapy Abnormal weight loss Cough Vitamin D deficiency, unspecified Raynaud's syndrome without gangrene 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 Sicca syndrome, unspecified Other mcfp (current) drug therapy 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 Sicca syndrome, unspecified Raynaud's syndrome without gangrene Other local company intermodal truck driver (current) drug therapy Vitamin D deficiency, unspecified 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 Sicca syndrome, unspecified Raynaud's syndrome without gangrene 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 Systemic lupus erythematosus, unspecified 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 Other mcfp (current) drug therapy Sicca syndrome, unspecified Sicca syndrome, unspecified Raynaud's syndrome without gangrene 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 Other mcfp (current) drug therapy 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 Raynaud's syndrome without gangrene Sicca syndrome, unspecified halfway current use of systemic steroid Other local company intermodal truck driver (current) drug therapy Raynaud's syndrome without gangrene halfway current use of systemic steroid Other local company intermodal truck driver (current) drug therapy Sicca syndrome, unspecified Vitamin D deficiency Sicca syndrome, unspecified Other local company intermodal truck driver (current) drug therapy 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 Other local company intermodal truck driver (current) drug therapy Sicca syndrome, unspecified Systemic lupus erythematosus, unspecified Sicca syndrome, unspecified Raynaud's syndrome without gangrene Rheumatoid arthritis, unspecified Other mcfp (current) drug therapy halfway current use of systemic steroid Ataxia, 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 Systemic lupus erythematosus, unspecified Sicca syndrome, unspecified Raynaud's syndrome without gangrene Other local company intermodal truck driver (current) drug therapy Ataxia, 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 [place] tel:[phone] tel:[phone] Arthritis Arthritis [facility] 9 5794 PLLC, 5794 PLLC [facility], [place], [id number], [id number], [place]. [place] tel:[phone] tel:[phone] Arthritis Arthritis [facility] 9 5794 PLLC, 5794 PLLC [facility], [place], [id number], [id number], [place]. [place] tel:[phone] tel:[phone] Arthritis Arthritis [facility] 9 5794 PLLC, 5794 PLLC [facility], [place], [place], [id number], [id number], [place]. [place] tel:[phone] tel:[phone] Arthritis Arthritis Sep-0 [facility] 9 5794 PLLC, 5794 PLLC [facility] [place], [place], [place], [id number], [id number], [place]. [place] tel:[phone] tel:[phone] Arthritis Arthritis Raynaud's Sep-0 [facility] Specialist: Health Health syndrome [facility] without 9 5794 , 1259 PLLC, 5794 PLLC gangreneRheu [facility] [address], [facility] arthritis w [place], [place], [place], [place], [address]. [place], mult site w/o [place], tel:[phone] [place], [facility]/sys [id number], [id number] [id number], involvSicca [place]. lting [place] syndrome, tel:[phone] Provider: tel:[phone] unspecifiedOth 648683 Joo [id number] er mcfp Stacy MEYER, (current) drug 16 therapy[address]a Clar[address]za l weight Dr Gaytan A, [place], [address]. tel:[phone] alist: Eufemia Atkinson MD, [address] [facility], [address] [facility] Neurodiagno [facility], [place], [address]. tel:[phone] ring Provider: Lesley Combs MD, [address] [facility], [place], [place], [id number]. tel:[phone] Arthritis Arthritis Vitamin D [facility] Specialist: Health Health deficiency, [facility] unspecifiedRay 9 5794 , 1259 PLLC, 5794 PLLC naud's [facility] [address], [facility] syndrome [place], [place], [place], [place], [address]. [place], gang[place], tel:[phone] [place], arthritis w [id number], [id number] [id number], rheu factor [place]. lting [place] [facility] site w/o tel:[phone] Provider: tel:[phone] org/sys [id number] Ge [id number] Kumar MD, syndrome, 16 unspecifiedOth Beemer er local company intermodal truck driver Dr Lukas Santos, (current) drug [place], therapy [address]. tel:[phone] alist: Eufemia Atkinson MD, [address] [facility], [address] [facility] Neuro[facility], [place], [address]. tel:[phone] [facility] Provider: Lesley Combs MD, [address] [place], [place], [id number]. tel:[phone] Arthritis Arthritis Rheu arthritis Peggy Specialist: Health Health rheu factor 7-201 CHRISTIANNE Kay. Ricardo [facility] site w/o 9 5794 , 1259 PLLC, 5794 PLLC org/sys [facility] [address], [facility] involvSicca [place], [facility], syndrome, [place], [address]. [place], unspecifiedRay [place], tel:[phone] [place], naud's [id number], [id number] [id number], syndrome [place]. lting [place] without tel:[phone] Provider: tel:[phone] gangreneOther [id number] Martinez mcfp Stacy MEYER, (current) drug 16 therapyVitamin [place] D deficiency, Dr Lukas Santos, [place], [address]. tel:[phone] alist: Eufemia Atkinson MD, [address] [facility], [address] [facility] Neurodiagn[facility], [place], [address]. tel:[phone] [facility] Provider: Lesley Combs MD, [address] [place], [place], [id number]. tel:[phone] Arthritis Arthritis Rheu arthritis Tervor-0 Jeremyi Specialist: [facility] factor 2-201 [facility] site w/o 9 5794 , 1259 PLLC, 5794 PLLC org/sys [facility] [address], [facility] involvSicca [place], [place], [place], syndrome, [place], [address]. [place], unspecifiedRay [place], tel:[phone] [place], naud's [id number], [address] [id number], syndrome [place]. lting [place] without tel:+[phone] Provider: tel:[phone] gangreneLong [address] Joo [id number] term current Stacy MEYER, use of [address] Lukas Santos, mcfp [place], (current) drug [address]. therapy tel:[phone] alist: Eufemia Atkinson MD, [address] [facility], [address] [facility], [place], [address]. tel:[phone] ring Provider: Lesley Combs MD, [address] [facility], [place], [place], [id number]. tel:[phone] Arthritis Arthritis Systemic lupus Sep-0 Robert MEYER Consulting [facility]. Provider: Abhijit Lacey unspec[facility] Medical Centere 8 5794 Joo PLLC, 5794 PLLC u arthritis Angel Kumar MD, [facility], [address] [place], [facility] site w/o [place], Beemer [place], org/sys DONI, Dr Lukas Santos, [place], involvOther [id number], [place], [place], [id number], [place]. [address]. [place] (current) drug tel:+[phone] tel:+[phone] tel:+[phone] therapySicca [id number] 963986 syndrome, alist: unspecified Eufemia Atkinson MD, [address] [facility], [address] [facility], [place], [address]. tel:[phone] ring Provider: Lesley Combs MD, [address] [place], [place], [id number]. tel:[phone] Arthritis Arthritis Sicca Anson-0 [facility] syndrome, CHRISTIANNE Kay. Provider: Abhijit Lacey unspecifiedRay 8 5794 Vic[facility] PLLC, 5794 PLLC naud's Angel Palencia MD, [facility] syndrome [place], [address] [place], without [place], Standart [place], gangreneLong [place], Ave, [place], term current [id number], [place], [place], [id number], [place]. [address]. [place] systemic tel:+ tel:+ tel:+ steroidOther [phone] 115905 mcfp alist: (current) drug Derek luly Crook, [address], [place], [address]. tel:[phone] lting Provider: Joo Kumar MD, [address] [facility] [place], [address]. tel:[phone] alist: Eufemia Atkinson MD, [address] [facility], [address] [facility] [place], [address]. tel:[phone] ring Provider: Lesley oCmbs MD, [address] [place], [place], [id number]. tel:[phone] Arthritis Arthritis RA w/ [facility] rheumatoid CHRISTIANNE Kay. Provider: Abhijit Lacey factor of 8 5794 [facility] PLLC, 5794 PLLC multiple sites Angel Palencia MD, [facility] w/o organ [place], [address] [place], involvementRay [place], [place], naud's [place], Ave, [place], syndrome [id number], [place], [place], [id number], [place]. [address]. [place] gangreneSicca tel:+315 tel:+315 tel:[phone] syndrome, [phone] 015795 unspecifiedLon alist: g term current Derek use of [place], systemic [address] local company intermodal truck driver Dr, (current) [place], [address]. tel:[phone] lting Provider: Joo Kumar MD, [address], [place], [address]. tel:[phone] ring Provider: Lesley Combs MD, [address] [place], [place], [id number]. tel:[phone] Arthritis Arthritis Raynaud's Peggy Consulting [facility] syndrome CHRISTIANNE Kay. Provider: Abhijit Lacey without 7 5794 [facility] PLLC, 5794 PLLC [facility] Angel Palencia MD, [facility] term current [place], [address] [place], use of [place], [place], systemic [place], Ave, [place], steroidOther [id number], [place], [place], [id number], [place]. [address]. [place] (current) drug tel:+315 tel:+315 tel:[phone] therapySicca [id number] 027424 syndrome, alist: unspecifiedVit Derek Crook, deficiency [address] , [place] [place], [address]. tel:[phone] ring Provider: Lesley Combs MD, [address] [place], [place], [id number]. tel:[phone] Arthritis Arthritis Sicca Robert MEYER Consulting [facility] Health syndrome, Juan. Provider: Abhijit Lacey unspecifiedOth 7 5794 [facility] PLLC, 5794 PLLC er local company intermodal truck driver Angel Palencia MD, [facility] (current) drug [place], [address] [place], therapy [place], [place], [place], [place], [id number], [place], [place], [id number], [place]. [address]. [place] tel:+[phone] tel:+3152 tel:[phone] 516303 ring Provider: Lesley Combs MD, [address] [facility], [place], [place], [id number]. tel:[phone] Arthritis Arthritis RA w/ [facility] rheumatoid 2- MD [place]. Provider: Associates Associates factor of 7 5794 [facility] PLLC, 5794 PLLC multiple sites Angel Palencia MD, Angel w/o organ [place], [address] [place], involvementOth [place], Stand[place], er local company intermodal truck driver [place], Ave, [place], (current) drug [id number], [place], [place], [id number], [place]. [address]. [place] syndrome, tel: tel: tel: unspecified [phone] [id number] ring Provider: Lesley Combs MD, [address] [facility], [place], [place], [address]. tel:[phone] Arthritis Arthritis Systemic lupus Fe [facility] erythematosus, MD [place]. Provider: Associates Associates unspecifiedSic 7 5794 [facility] PLLC, 5794 PLLC ca syndrome, Angel Palencia MD, [facility] unspecifiedRay [place], [address] [place], naud's [place], [place], syndrome [place], [place], [place], without [id number], [place], [place], [id number], [place]. [address]. [place] toid tel: tel: tel: arthritis, [phone] 338282 unspecifiedOth ring er mcfp Provider: (current) drug Lesley chavira MD, 5794 use of [facility], steroidAtaxia, [place], unspecified [place], [id number]. tel:[phone] Arthritis Arthritis RA w/ Asher MEYER Consulting [facility] rheumatoid 3-201 Dodji. 310 Provider: Associates Associates factor of [address] [place] [facility]C, 5794 PLLC multiple sites Talha Parmar MD, [facility] w/o organ [place], [address] [place], involvementSys [place], [place], temic lupus [id number], Ave, [place], erythematosus, [place]. [place], [place], [id number], unspecifiedSic tel: [phone]. [place] ca syndrome, [address] tel: tel: unspecifiedRay 980489Qcsxx 570358 naud's ring syndrome Provider: without Salvador hortagreneNithya soriano MD, [address] (current) drug [address], therapyAtaxia, [place], unspecified [place], [address]. tel: [phone] Arthritis Arthritis RA w/ Asher MEYER Consulting [facility] rheumatoid [facility]. 310 Provider: Associates Associates factor of [address] [place] [facility], 5794 PLLC multiple sites Talha Parmar MD, [facility] w/o organ [place], [address] [place], involvementSys [place], [place], temic lupus [id number], Ave, [place], erythematosus, [place]. [place], [place], [id number], unspecifiedSic tel: [phone]. [place] ca syndrome, 696154 tel: tel: unspecifiedRay 050381Satsi 521257 naud's ring syndrome Provider: without Salvador soriano MD, [address] (current) drug [address], therapy [place], [place], [address]. tel:[phone] Arthritis Arthritis RA w/ Asher MEYER Consulting [facility] rheumatoid [facility]. 310 Provider: Associates Associates factor of [address] [facility]C, 5794 PLLC multiple sites Talha Parmar MD, [facility] w/o organ [place], [address] [place], involvementSys [place], [place], temic lupus [id number], Ave, [place], erythematosus, [place]. [place], [place], [id number], unspecifiedOth tel: [phone]. [place] er local company intermodal truck driver 709149 tel: tel:+ (current) drug [phone] [phone] therapy ring Provider: Salvador Sterling MD, [address], [place], [place], [address]. tel:[phone] Arthritis Arthritis Rheumatoid Mar-0 Asher MEYER Consulting [facility] arthritis, [facility]. 310 Provider: Associates Abhijit unspecifiedSys [address] Vicente PLLC, 5794 PLLC temic lupus Talha Parmar MD, [facility] erythematosus, [place], [address] [place], unspecifiedSic [place], [place], ca syndrome, [id number], Ave, [place], unspecifiedRay [place]. [place], [place], [id number], naud's tel:+ [phone]. [place] syndrome [id number] tel: tel: without [phone] 914005 gangreneAntiph ring ospholipid Provider: syndromeEncoun Salvador Foley MD, [address], monitoring [place], [place], [address]. tel: [phone] Arthritis Arthritis RA w/ Nov- Asher MEYER Consulting [facility] rheumatoid [facility]. 310 Provider: Associates Associates factor of [address] [facility]C, 5794 PLLC multiple sites Talha Parmar MD, [facility] w/o organ [place], [address] [place], involvementSys [place], [place], temic lupus [id number], Ave, [place], erythematosus, [place]. [place], [place], [address], unspecifiedSic tel:+ [phone]. [place] ca syndrome, 833334 tel:+ tel:+315 unspecifiedRay 380[address]Dhbam [id number] naud's ring syndrome Provider: monica hortagreneEncoun Asher juan MD, [address], drug level [place], monitoring [place], [id number]. tel:+ [phone] Arthritis Arthritis Fe- Asher MEYER Referring [facility]. 310 Provider: Associates Abhijit [address] [place] Dodji PLLC, 5794 PLLC Asher Parmar MD, [address] [place], [place], [place], [id number], [place], [place]. [place], [id number], [phone]. [address] tel:+[phone] [phone] Family History Family Member Diagnosis Age At Onset Father Cancer, esophageal Immunizations Vaccine Date Status Comments Pneumococcal polysaccharide administered Source: Source Unspecified PPV23 Influenza, split virus, administered Source: Source Unspecified injectable, 3 years and older Fluvirin Payers Payer name Insurance type Covered republican ID Authorization(s) [facility] [id number] Social History Type Description Quantity Date Captured [...] Tobacco cessation counseling completed Referral Ordered: ordered *Chest Xrays 2 Views Referral Ordered: ordered Teri Mendoza -Neurology (related to Ataxia, unspecified) Referral Referred To: ordered Teri Mendoza [address] [place], [phone] Ordered: Referrals: Neurology. Teri Mendoza. Consult Appointment Nevaeh Aguilar BOOKED History Of Present Illness Encounter Date Complaint History Of Present Illness No information Functional Status Date Functional Assessment No information Medications Administered Medication Instructions Dosage Effective Dates (start - stop) Status Comments No information Instructions Date Instruction Additional Information Diet: avoid alcohol Avoid live vaccines Weight reduction urged. Risks/benefits of medications reviewed Avoid sun and use high SPF sunblock Reviewed importance of compliance/adherence to medications prescribed Discussed importance of holding DMARDs/ biologics if patient develops an infection and to notify the treating physician Labs ordered to check disease activity. Labs ordered to check blood counts, liver and kidney functions to monitor safety of medication. Discussed / Reviewed Labs call if symptoms worsen maintain adequate water intake every day Maintain adequate core warmth. Wear warm, wind-proof gloves and boots. Reviewed importance of compliance/adherence to medications prescribed Diet: avoid alcohol Avoid live vaccines Risks/benefits of medications reviewed Avoid sun and use high SPF sunblock Discussed importance of holding DMARDs/ biologics if patient develops an infection and to notify the treating physician Diet: Instructed on appropriate calcium and vitamin D intake. Labs ordered to check disease activity. Labs ordered to check blood counts, liver and kidney functions to monitor safety of medication. Discussed / Reviewed Labs call if symptoms worsen maintain adequate water intake every day Discussed / Reviewed Labs call if symptoms worsen maintain adequate water intake every day Reviewed importance of compliance/adherence to medications prescribed Diet: avoid alcohol Avoid live vaccines Risks/benefits of medications reviewed Avoid sun and [...] Avoid live vaccines Risks/benefits of medications reviewed Avoid sun and [...] with recommendations lower mtx to 4 weekly Reviewed importance of compliance/adherence to medications prescribed [...] worsen maintain adequate water intake every day Reviewed importance of compliance/adherence to medications prescribed Diet: avoid alcohol Avoid live vaccines Risks/benefits of medications reviewed Avoid sun and use high SPF sunblock Discussed importance of holding DMARDs/ biologics if patient develops an infection and to notify the treating physician Diet: Instructed on appropriate calcium and vitamin D intake. Labs ordered to check disease activity. Labs ordered to check blood counts, liver and kidney functions to monitor safety of medication. Discussed / Reviewed Labs Patient plan printed and given along with recommendations call if symptoms worsen Maintain adequate core warmth. Wear warm, wind-proof gloves and boots. maintain adequate water intake every day Labs ordered to check disease activity. Labs [...] boots. maintain adequate water intake every day Risks/benefits of medications reviewed Discussed importance of holding DMARDs/ biologics if patient develops an infection and to notify the treating physician Educated regarding diagnosis and treatment options. Labs ordered to check disease activity. Labs ordered to check blood counts, liver and kidney functions to monitor safety of medication. Patient plan printed and given along with recommendations continue same medication plan call if symptoms worsen lower mtx to 8 week.readd prednisone to 5mg day
--- OUTSIDE RECORDS SUMMARY | 2019-05-07 10:24 | XMS REPORT | Continuity of Care Document ---
:1960 External Reference #:[id number] Author Name Joo Kumar MD (transmitted by agent of provider Neelam Chadwick) Address [address] [place] [address] Care Team Providers Name Role Phone Moises Rosario MD - Internal Care Team Information Pastry Assistant [phone] Medicine Problems Active Problems Provider Date Lesion of median nerve Joo Kumar MD Onset: 04/03/2017 Snapping thumb syndrome Joo Kumar MD Onset: 12/27/2018 Carpal tunnel syndrome of left wrist Joo Kumar MD Onset: 12/27/2018 Localized superficial swelling of skin Joo Kumar MD Onset: 12/27/2018 Social History Type Date Description Comments Sex Unknown ETOH Use Occasionally consumes alcohol Tobacco Use Start: Unknown Light tobacco smoker (10 or fewer cigarettes/day) Smoking Status Reviewed: 04/01/19 Light tobacco smoker (10 or fewer cigarettes/day) Exercise Type/Frequency Exercises sporadically Allergies, Adverse Reactions, Alerts Active Allergies Reaction Severity Comments Date NKDA 01/18/2017 Tape +can only use paper tape 01/23/2017 Medications Active Medications SIG Qnty Indications Ordering Date Provider Tramadol HCL 1 tab by 15tabs Joo Kumar, 03/13/2019 50mg Tablets mouth every MD 4-6 hours as needed pain Hydrocodone-Acetaminophen 1 tab by 15tabs Joo Kumar, 03/13/2019 5-325mg mouth every MD Tablets 4-6 hours as needed for pain. MDD 5 Gabapentin 1 tab by 90caps G56.02 Yamileth Ramsay, 04/18/2018 300mg Capsules mouth three M.D. times daily Folic Acid 1 po qday Robert, 1mg Tablets Juan Johnson M.D. Hydroxyzine HCL 1 by mouth 60tabs Unknown 10mg Tablets three times a day Prednisone 1 by mouth Unknown 5mg Tablets every day Hydroxychloroquine Sulfate take one Unknown 200mg tablet by Tablets mouth twice a day Aspirin Adult Low Strength take one Unknown 81mg tablet by Tablets DR mouth daily. Medications Administered in Office Medication SIG Qnty Indications Ordering Provider Date Depomedrol 40MG Yamileth Ramsay M.D. 04/18/2018 Injection Celestone 3 mg and 3mg Joo Kumar MD 11/16/2017 Injection Immunizations Description No Information Available Vital Signs Date Vital Result Comment 04/01/2019 11:04am Height 60 inches 5'0" Weight 134.00 lb Heart Rate 58 /min BP Systolic 126 mmHg BP Diastolic 72 mmHg Respiratory Rate 16 /min Body Temperature 98.4 F Pain Level 6 BMI (Body Mass Index) 26.2 kg/m2 02/18/2019 3:02pm Height 60 inches 5'0" Weight 134.50 lb Heart Rate 70 /min BP Systolic 120 mmHg BP Diastolic 78 mmHg Respiratory Rate 16 /min Pain Level 8 BMI (Body Mass Index) 26.3 kg/m2 Results Test Acquired Date Facility Test Result H/L Range Note Surgical 03/13/2019 [facility] Surgical SEE RESULT 1, [address] Pathology BELOW [place] [id number] [phone] [facility]FR[facility]ort SEE IMAGE 1 [id number] 2 SEE RESULT BELOW Name: MIGUELITO CHAMBERLAIN : [address]: Joo Kumar MD Acct: [id number] Unit: [id number] AGE: 58 Location: [facility] Re03/13/19 SEX: F Status: DEP SDC SPEC: [id number] GADIEL: 03/13/19-[address]: Joo Kumar MD REQ: [id number] RECD: 03/13/196 STATUS: SOUT _ ORDERED: LEVEL 3 COMMENTS: [id number] FINAL DIAGNOSIS Left thumb, excision: -- 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 PRE-OPERATIVE DIAGNOSIS Left trigger thumb with symptomatic tendon sheath nodule GROSS DESCRIPTION The specimen is received in formalin labeled, Tendon Sheath Nodule Left Thumb , and consists of a 0.5 by up to 0.3 x 0.1 cm ni-white irregular rubbery fibrous tissue fragment which is submitted entirely in one cassette. Signed by and Reported on: Ariadne Gaitan MD 03/14/19 1331 END OF REPORT DEPARTMENT OF PATHOLOGY, [address] [place] [address] Derek Ross M.D. Director [facility] # [id number] Procedures Date Code Description Status 03/13/2019 13145 Excision Tendon Sheath Ganglion /Or Joint Capsule Hand Or Completed Finger 03/13/2019 85062 Excision Tendon Sheath Ganglion /Or Joint Capsule Hand Or Completed Finger 03/13/2019 36216 Excision Tendon Sheath Ganglion /Or Joint Capsule Hand Or Completed Finger Medical Devices Description No Information Available Encounters Type Date Location Provider Dx Diagnosis Office Visit 12/27/2018 [facility] Joo Kumar, M65.312 Trigger thumb, 2:45p at [facility] left thumb G56.02 Carpal tunnel syndrome, left upper limb R22.32 Localized swelling, mass and lump, left upper limb Assessments Date Code Description Provider 04/01/2019 M65.312 Trigger thumb, left thumb Joo Kumar MD 04/01/2019 R22.32 Localized swelling, mass and lump, left Joo Kumar MD upper limb 03/13/2019 M65.312 Trigger thumb, left thumb Chaya Bazzi, RPA-C 03/13/2019 M65.312 Trigger thumb, left thumb Joo Kumar MD 03/13/2019 R22.32 Localized swelling, mass and lump, left Joo Kumar MD upper limb 03/13/2019 R22.32 Localized swelling, mass and lump, left Chaya Bazzi, RPA-C upper limb 02/18/2019 M65.312 Trigger thumb, left thumb Joo Kumar MD 02/18/2019 G56.02 Carpal tunnel syndrome, left upper limb Joo Kumar MD 02/18/2019 R22.32 Localized swelling, mass and lump, left Joo Kumar MD upper limb 12/27/2018 M65.312 Trigger thumb, left thumb Joo Kumar MD 12/27/2018 G56.02 Carpal tunnel syndrome, left upper limb Joo Kumar MD 12/27/2018 R22.32 Localized swelling, mass and lump, left Joo Kumar MD upper limb Plan of Treatment Future Appointment(s):05/02/2019 8:45 am - Joo Kumar MD at [facility]/07/2020 - Joo Kumar MDM65.312 Trigger thumb, left thumbFollow up:Follow up: 4 mpmwfV69.32 Localized swelling, mass and lump , left upper limb Functional Status Description No Information Available Mental Status Description No Information Available Referrals Description No Information Available
--- OUTSIDE RECORDS SUMMARY | 2019-05-07 10:24 | XMS REPORT | Continuity of Care Document ---
:1960 External Reference #:[id number] Author Name Joo Kumar MD (transmitted by agent of provider Jeff Malave) Address [address] [place] [address] Care Team Providers Name Role Phone Moises Rosario MD - Internal Care Team Information Litigation Specialist Medicine Problems Active Problems Provider Date Lesion [...] (10 or fewer cigarettes/day) Smoking Status Reviewed: 04/25/19 Light tobacco smoker (10 or fewer cigarettes/day) Exercise Type/Frequency Exercises sporadically Allergies, Adverse Reactions, Alerts Active Allergies Reaction Severity Comments Date NKDA 01/18/2017 Tape +can only use paper tape 01/23/2017 Medications Active Medications SIG Qnty Indications Ordering Date Provider Tramadol HCL 1 tab by 15tafacundo Kumar, 03/13/2019 50mg Tablets mouth every MD 4-6 hours as needed pain Hydrocodone-Acetaminophen 1 tab by 15tabs Joo Kumar, 03/13/2019 5-325mg mouth every MD Tablets 4-6 hours as needed for pain. MDD 5 Gabapentin 1 tab by flavia G56.02 Yamileth 04/18/2018 300mg Capsules mouth three Maeve Thomas times daily Folic Acid 1 po qday [...] Indications Ordering Provider Date Depomedrol 40MG Yamileth Thomas M.D. 04/18/2018 Injection Celestone 3 mg and 3mg Joo Kumar MD 11/16/2017 Injection Immunizations Description No Information Available Vital Signs Date Vital Result Comment 04/25/2019 10:00am Height 60 inches 5'0" Weight 135.00 lb Heart Rate 70 /min BP Systolic 124 mmHg BP Diastolic 72 mmHg Respiratory Rate 16 /min Body Temperature 96.8 F Pain Level 3 O2 % BldC Oximetry 96 % BMI (Body Mass Index) 26.4 kg/m2 04/01/2019 11:04am Height 60 inches 5'0" Weight 134.00 lb Heart Rate 58 /min BP Systolic 126 mmHg BP Diastolic 72 mmHg Respiratory Rate 16 /min Body Temperature 98.4 F Pain Level 6 BMI (Body Mass Index) 26.2 kg/m2 Results Test Acquired Date Facility Test Result H/L Range Note Surgical 03/13/2019 [facility] Surgical SEE RESULT 1, [address] [place] [address] [phone] PDFReport SEE IMAGE 1 [id number] SEE RESULT BELOW Name: KARLEY CHAMBERLAIN : [address]: Joo Kumar MD Acct: [id number] Unit: [id number] AGE: 58 Location: [facility] Re03/13/19 SEX: F Status: DEP SDC SPEC: [id number] GADIEL: 03/13/19-[address] [facility] [address]: Joo Kumar MD REQ: [id number] RECD: 03/13/19 STATUS: SOUT _ ORDERED: LEVEL 3 COMMENTS: [id number] FINAL DIAGNOSIS Left thumb, excision: -- Benign [...] 1331 END OF REPORT DEPARTMENT OF PATHOLOGY, [address] [place] [address] Derek Ross M.[address]. Director [facility] # [id number] Procedures Date Code Description Status 03/13/2019 89450 Excision Tendon Sheath Ganglion /Or Joint Capsule Hand Or Completed Finger 03/13/2019 23933 Excision Tendon Sheath Ganglion /Or Joint Capsule Hand Or Completed Finger 03/13/2019 97049 Excision Tendon Sheath Ganglion /Or Joint Capsule Hand Or Completed Finger Medical Devices Description No Information Available Encounters Type Date Location Provider Dx Diagnosis Office Visit 12/27/2018 [facility] Joo Kumar, M65.312 Trigger thumb, 2:45p at [facility] left thumb G56.02 Carpal tunnel syndrome, left upper limb R22.32 Localized swelling, mass and lump, left upper limb Assessments Date Code Description Provider 04/25/2019 M65.312 Trigger thumb, left thumb Joo Kumar MD 04/25/2019 R22.32 Localized swelling, mass and lump, left Joo Kumar MD upper limb 04/01/2019 M65.312 Trigger thumb, left thumb Joo Kumar MD 04/01/2019 R22.32 Localized swelling, mass and lump, left Joo Kumar MD upper limb 03/13/2019 M65.312 Trigger thumb, left thumb Chaya Bitting, RPA-C 03/13/2019 M65.312 Trigger thumb, left thumb Joo Kumar MD 03/13/2019 R22.32 Localized swelling, mass and lump, left Joo Kumar MD upper limb 03/13/2019 R22.32 Localized swelling, mass and lump, left Chaya Bitting, RPA-C upper limb 02/18/2019 M65.312 Trigger thumb, [...] Kumar MD upper limb Plan of Treatment 04/25/2019 - Joo Kumar, MDM65.312 Trigger thumb, left thumbFollow up: Follow up: As [id number] Localized swelling, mass and lump, left upper limb Functional Status Description No Information Available Mental Status Description No Information Available Referrals Description No Information Available
--- OUTSIDE RECORDS SUMMARY | 2019-05-07 10:24 | XMS REPORT | Continuity of Care Document ---
:1960 Author Organization [facility] Address [address], [place] [id number] Phone Care Team Providers Name Role Phone Rahul Woods PA-C Unavailable Unavailable Allergies, Adverse Reactions, Alerts Substance Reaction Status No Known Allergies Active Medications Medication Instructions Dosage Effective Dates Status Comments (start - stop) FOLIC ACID 1MG TABLETS TAKE 2 TABLETS BY 2 MG - Active MOUTH EVERY DAY HYDROXYZINE HCL 25MG TAKE 1 TABLET BY 25 MG - Active TABS (WHITE) MOUTH THREE TIMES DAILY PREDNISONE 5MG TABLETS TAKE 1 TABLET BY - Active MOUTH EVERY DAY hydroxychloroquine 200 TAKE 1 TABLET BY - Active mg tablet ORAL ROUTE IN AM AND HALF TAB AT NIGHT DAILY methotrexate sodium 2.5 TAKE 4 TABS ONE [...] Active oral route 2 times every day folic acid 1 mg tablet TAKE 2 TABLET BY 2 MG - No Longer ORAL ROUTE EVERY Active DAY hydroxyzine HCl 25 mg take 1 tablet by 25 MG - No Longer tablet oral route 3 times Active every day Problems Condition Effective Dates (start - Clinical Status Comments stop) Raynaud's syndrome without gangrene 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 Sicca syndrome, unspecified 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 Abnormal weight loss Cough Vitamin D deficiency, unspecified Raynaud's syndrome without gangrene 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 Sicca syndrome, unspecified 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 Sicca syndrome, unspecified Raynaud's syndrome without gangrene 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 Vitamin D deficiency, unspecified 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 Sicca syndrome, unspecified Raynaud's syndrome without gangrene 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 Systemic lupus erythematosus, unspecified 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 Other penitentiary (current) drug therapy Sicca syndrome, unspecified Sicca syndrome, unspecified Raynaud's syndrome without gangrene 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 Raynaud's syndrome without gangrene Sicca syndrome, unspecified 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 Raynaud's syndrome without gangrene 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 Other penitentiary (current) drug therapy Sicca syndrome, unspecified Vitamin D deficiency Sicca syndrome, unspecified Other penitentiary (current) drug therapy 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 Other penitentiary (current) drug therapy Sicca syndrome, unspecified Systemic lupus erythematosus, unspecified Sicca syndrome, unspecified Raynaud's syndrome without gangrene Rheumatoid arthritis, unspecified Other penitentiary (current) drug therapy 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 Ataxia, 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 Systemic lupus erythematosus, unspecified Sicca syndrome, unspecified Raynaud's syndrome without gangrene 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 Ataxia, 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 [place] tel:[phone] tel:[phone] Arthritis Arthritis [facility] 9 5794 PLLC, 5794 PLLC [facility], [facility], [place], [id number], [id number], [place]. [place] tel:[phone] tel:[phone] Arthritis Arthritis [facility] 9 5794 PLLC, 5794 PLLC [facility], [place], [place], [place], [id number], [id number], [place]. [place] tel:[phone] tel:[phone] Arthritis Arthritis Raynaud's [facility] without 9 5794 MD, 1259 PLLC, 5794 PLLC gangreneRheu [facility] [address], [facility] arthritis w [place], [place], [place], [place], [address]. [place], mult site w/o [place], tel:[phone] [place], org/sys [id number], [id number] [id number], involvSicca [place]. lting [place] syndrome, tel:[phone] Provider: tel:[phone] unspecifiedOth 762020 Joo [id number] er penitentiary Stacy MEYER, (current) drug 16 therapyAbnorma [place] l weight [address] Lukas Santos, [place], [address]. tel:[phone] alist: Eufemia Atkinson MD, [address] [facility], [address] [facility], [place], [address]. tel:[phone] ring Provider: Lesley Combs MD, [address] [facility], [place], [place], [id number]. tel:[phone] Arthritis Arthritis Vitamin D Peggy Specialist: Health Health deficiency, 8-201 PASaud Kay. Ricardo [facility] unspecifiedRay 9 5794 MD, 1259 PLLC, 5794 PLLC naud's [facility] [address], [facility] syndrome [place], [place], [place], [place], [address]. [place], Jessieu [place], tel:[phone] [place], arthritis w [id number], [id number] [id number], rheu factor [place]. lting [place] [facility] site w/o tel:[phone] Provider: tel:[phone] org/sys [id number] Ge [id number] Kumar MD, syndrome, 16 unspecifiedOth [place] er pen[address] Dr Lukas Santos, (current) [place], therapy [address]. tel:[phone] alist: Eufemia Atkinson MD, [address] [facility], [address] [facility], [place], [address]. tel:[phone] ring Provider: Lesley Combs MD, [address] [place], [place], [id number]. tel:[phone] [facility] Peggy Specialist: [facility] factor 7-201 CHRISTIANNE Vega [facility] site w/o 9 5794 , 1259 PLLC, 5794 PLLC org/sys [facility] [address], [facility], [facility], syndrome, [place], [address]. [place], unspecifiedRay [place], tel:[phone] [place], naud's [id number], [id number] [id number], syndrome [place]. lting [place] without tel:[phone] Provider: tel:[phone] gangreneOther Juan Martinez [employer] customer [employer] Stacy MEYER, (current) drug 16 therapyVitamin [place] D deficiency, Dr Lukas Santos, [place], [address]. tel:[phone] alist: Eufemia Atkinson MD, [address] [facility], [address] [facility] Neuro[facility], [place], [address]. tel:[phone] ring Provider: Lesley Combs MD, [address], [place], [id number]. tel:[phone] [facility]thritis [facility]ritis [facility] Peggy Specialist: [facility] factor 2-201 CHRISTIANNE Vega [facility] site w/o 9 5794 , 1259 PLLC, 5794 PLLC org/sys [facility] [address], [facility], [facility], syndrome, [place], [address]. [place], unspecifiedRay [place], tel:[phone] [place], naud's [id number], [id number] [id number], syndrome [place]. lting [place] without tel:[phone] Provider: tel:[phone] gangreneLong [id number] Martinez term current Stacy MEYER, use of [address] Lukas Santos, [employer] [place], (current) drug [address]. therapy tel:[phone] alist: Eufemia Atkinson MD, [address] [facility], [address] [facility] Neuro[facility], [place], [address]. tel:[phone] ring Provider: Lesley Combs MD, [address], [place], [id number]. tel:[phone] Arthritis Arthritis Systemic lupus Sep-0 Robert MEYER [facility] erythematosus, Juan. Provider: Abhijit Lacey unspeccorinneRhe 8 5794 Joo PLLC, 5794 PLLC u arthritis w Angel Kumar MD, [facility], [address], [facility] site w/o [place], [place], org/sys DONI, Dr Gaytan , [place], involvOther [id number], [place], [place], [id number], [place]. [address]. [place] (current) drug tel:+ tel:[phone] tel:[phone] therapySicca [phone] [id number] [id number] syndrome, alist: unspecified Eufemia Atkinson MD, [address] [facility], [address] [facility] Neurodiagno [facility], [place], [address]. tel:[phone] ring Provider: Lesley Combs MD, [address], [place], [id number]. tel:[phone] Arthritis Arthritis Sicca Anson-0 Peggy [facility] syndrome, CHRISTIANNE Kay. Provider: Abhijit Lacey unspeccorinneRay 8 5794 Vicente PLLC, 5794 PLLC alejo Fernandounited [facility] clinicchris Palencia MD, [facility] syndrome [address], [address], without [place], Standart [place], gangreneLong [place], Ave, [place], term current [id number], [place], [place], [id number], [place]. [address]. [place] systemic tel:[phone] tel:+[phone] tel:[phone] steroidOther [id number] [id number] penitentiary alist: (current) drug Derek therapy Armaan, [address], [place], [address]. tel:[phone] lting Provider: Joo Kumar MD, [address], [place], [address]. tel:[phone] alist: Eufemia Atkinson MD, [address] [facility], [address] [facility] Neurodiagn[facility], [place], [address]. tel:[phone] ring Provider: Lesley Combs MD, [address], [place], [id number]. tel:[phone] Arthritis Arthritis RA w/ [facility] rheumatoid 2- CHRISTIANNE Kay. Provider: Associates Associates factor of 8 5794 Vicente PLLC, 5794 PLLC multiple sites [facility] Pal[facility] MD, [facility] w/o organ [place], [address], involvementRay [place], Standart [place], naud's [place], Ave, [place], syndrome [id number], [place], [place], [id number], [place]. [address]. [place] gangreneSicca tel:+315 tel:+[phone] tel:[phone] syndrome, 138040 141355Qzckf 204027 unspecifiedLon alist: g term current Derek use of pooja Crook [address], (current) [place], [address]. tel:[phone] lting Provider: Joo Kumar MD, [address], [place], [address]. tel:[phone] [facility] Provider: Lesley Combs MD, [address], [place], [id number]. tel:[phone] Arthritis Arthritis Raynaud's Nov-0 [facility] syndrome 6-201 CHRISTIANNE Kay. Provider: Associates Associates without 7 5794 Vicente PLLC, 5794 PLLC gangreneLong Angel Palencia MD, [facility] term current [place], [address], use of [place], Standart [place], systemic [place], Ave, [place], steroidOther [id number], [place], [id number], [place]. [address]. [place] (current) drug tel:+315 tel:+ tel:+ therapySicca [phone] 041616 syndrome, alist: unspecifiedVit Derek Crook, deficiency [address], [place], [address]. tel:[phone] ring Provider: Lesley Combs MD, [address], [place], [id number]. tel:+ [phone] Arthritis Arthritis Sicca Robert MEYER Consulting [facility] syndrome, Juan. Provider: Abhijit Lacey unspecifiedOth 7 5794 [facility] PLLC, 5794 PLLC er penitentiary Angel Palencia MD, Angel (current) drug [place], [address], therapy [place], [place], [place], [place], [place], [id number], [place], [place], [id number], [place]. [address]. [place] tel:+ tel:+ tel:+ [phone] [phone] ring Provider: Lesley Combs MD, [address], [place], [id number]. tel:+ [phone] Arthritis Arthritis RA w/ Lauryn Consulting [facility] rheumatoid MD [place]. Provider: Associates Associates factor of 7 5794 Vicente PLLC, 5794 PLLC multiple sites Angel Palencia MD, Mini w/o organ [place], [address], involvementOth [place], Standart [place], er intermodal customer service [place], [place], [place], (current) drug [id number], [place], [place], [id number], [place]. [address]. [place] syndrome, tel:+315 tel: tel: unspecified [phone] [id number] ring Provider: Lesley Combs MD, [address] [facility] [place], [place], [id number]. tel: [phone] Arthritis Arthritis Systemic lupus Lauryn Consulting [facility] erythematosus, 7- MD [place]. Provider: Associates Associates unspecifiedSic 7 5794 Vicente PLLC, 5794 PLLC ca syndrome, Angel Palencia MD, [facility] unspecifiedRay [place], [address], naud's [place], Standart [place], syndrome [place], [place], [place], without [id number], [place], [place], [id number], [place]. [address]. [place] toid tel: tel: tel: arthritis, [phone] 860179 unspecifiedOth ring er [employer] customer [employer] Provider: (current) drug Lesley soriano current MD, 5794 use of [facility] systemic [place], steroidAtaxia, [place], unspecified [place], [id number]. tel:[phone] Arthritis Arthritis RA w/ Asher MEYER Consulting [facility] rheumatoid 3 Dodji. 310 Provider: Associates Associates factor of 6 [address] Vicente PLLC, 5794 PLLC multiple sites Talha Parmar MD, [facility] w/o organ [place], [address], involvementSys [place], Standart [place], temic lupus [id number], Ave, [place], erythematosus, [place]. [place], [place], [id number], unspecifiedSic tel: [phone]. [place] ca syndrome, 325182 tel: tel: unspecifiedRay [id number] 137510 naud's ring syndrome Provider: without Dodji gangreneOther Asher penitentiary , [address] (current) drug [address], therapyAtaxia, [place], unspecified [place], [address]. tel:513 Arthritis Arthritis RA w/ Asher MEYER Consulting [facility] rheumatoid 5-201 [facility]. 310 Provider: Associates Associates factor of [address] [place] [facility]C, 5794 PLLC multiple sites Talha Parmar MD, [facility] w/o organ [place], [address], involvementSys [place], Stand[place], temic lupus [id number], Ave, [place], erythematosus, [place]. [place], [place], [address], unspecifiedSic tel:+ [phone]. [place] ca syndrome, 50[address] tel:+ tel:+[phone] unspecifiedRay 2052[address]Zahov 158123 naud's ring syndrome Provider: without [place] hortagreneNithya soriano MD, [address] (current) [address], therapy [place], [place], [address]. tel:+ [phone] Arthritis Arthritis RA w/ Asher MEYER Consulting [facility] rheumatoid [facility]. 310 Provider: Associates Associates factor of [address] Vicente PLLC, 5794 PLLC multiple sites Talha Parmar MD, [facility] w/o organ [place], [address], involvementSys [place], Stand[place], temic lupus [id number], Ave, [place], erythematosus, [place]. [place], [place], [id number], unspecifiedOth tel:+ [phone]. [place] er penitentiary 024283 tel: tel:+[phone] (current) drug [id number] [id number] therapy ring Provider: [place] Sterling MD, [address], [place], [place], [id number]. tel:+ [phone] Arthritis Arthritis Rheumatoid Mar-0 Asher MEYER Consulting [facility] arthritis, [facility]. 310 Provider: Associates Associates unspecifiedSys [address] [place] [facility], 5794 PLLC temic lupus Talha Parmar MD, [facility] erythematosus, [place], [address], unspecifiedSic [place], Stand[place], ca syndrome, [id number], Ave, [place], unspecifiedRay [place]. [place], [place], [id number], naud's tel:+ [phone]. [place] syndrome [id number] tel:+3152 tel:[phone] without [id number] 577227 gangreneAntiph ring ospholipid Provider: Kaylin Foley MD, [address], monitoring [place], [place], [address]. tel:[phone] Arthritis Arthritis RA w/ Asher MEYER Consulting [facility] rheumatoid [facility]. 310 Provider: Associates Associates factor of [address] Vicente PLLC, 5794 PLLC multiple sites Talha Parmar MD, [facility] w/o organ [place], [address], involvementSys [place], Standart [place], temic lupus [id number], Ave, [place], erythematosus, [place]. [place], [place], [address], unspecifiedSic tel:+ [phone]. [place] ca syndrome, [address] tel:+ tel:+315 unspecifiedRay [id number] 558267 naud's ring syndrome Provider: monica gauthiereEncoun Asher louise for , [address], drug level [place], monitoring [place], [address]. tel:+ [phone] Arthritis Arthritis Asher MEYER Referring [facility]. [facility] Provider: Abhijit Lacey [address] S [address] Dodjame PLLC, 5794 PLLC Asher Parmar MD, [address] [place], [place], [address], [place], [id number], [place], [place], [place]. [place], [id number], tel:[phone]. [place] 849180 tel:+3154 tel:[phone] Family History Family Member Diagnosis Age At Onset Father Cancer, esophageal Immunizations Vaccine Date Status Comments Pneumococcal polysaccharide administered Source: Source Unspecified PPV23 Influenza, split virus, administered Source: Source Unspecified injectable, 3 years and older Fluvirin [id number] Payers Payer name Insurance type Covered constitution party ID Authorization(s) [facility] [id number] Social History Type Description Quantity Date Captured Comments Sex Female Vital Signs Date / Height [...] Referral Referred To: ordered Teri Mendoza [address] [place], [address] [id number] Ordered: Referrals: Neurology. Teri Mendoza. Consult Appointment [...]
--- OUTSIDE RECORDS SUMMARY | 2019-05-07 10:24 | XMS REPORT | Continuity of Care Document ---
:1960 Author Organization [facility] Address [address], [place] [id number] Phone Care Team Providers Name Role Phone Rahul Woosd PA-C Unavailable Unavailable Allergies, Adverse Reactions, Alerts [...] w/o org/sys involv Sicca syndrome, unspecified Other halfway (current) drug therapy Abnormal weight loss Cough Vitamin D deficiency, unspecified Raynaud's syndrome without gangrene 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 Sicca syndrome, unspecified Other halfway (current) drug therapy 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 Sicca syndrome, unspecified Raynaud's syndrome without gangrene Other terminal supervisor (current) drug therapy Vitamin D deficiency, unspecified 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 Sicca syndrome, unspecified Raynaud's syndrome without gangrene 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 Other terminal supervisor (current) drug therapy Systemic lupus erythematosus, unspecified 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 Other halfway (current) drug therapy Sicca syndrome, unspecified Sicca syndrome, unspecified Raynaud's syndrome without gangrene 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 Other halfway (current) drug therapy 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 Raynaud's syndrome without gangrene Sicca syndrome, unspecified residential current use of systemic steroid Other terminal supervisor (current) drug therapy Raynaud's syndrome without gangrene residential current use of systemic steroid Other terminal supervisor (current) drug therapy Sicca syndrome, unspecified Vitamin D deficiency Sicca syndrome, unspecified Other terminal supervisor (current) drug therapy 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 Other terminal supervisor (current) drug therapy Sicca syndrome, unspecified Systemic lupus erythematosus, unspecified Sicca syndrome, unspecified Raynaud's syndrome without gangrene Rheumatoid arthritis, unspecified Other halfway (current) drug therapy residential current use of systemic steroid Ataxia, 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 Systemic lupus erythematosus, unspecified Sicca syndrome, unspecified Raynaud's syndrome without gangrene Other terminal supervisor (current) drug therapy Ataxia, 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 [place] tel:[phone] tel:[phone] Arthritis Arth[facility] 9 5794 PLLC, 5794 PLLC [facility], [place], [id number], [id number], [place]. [place] tel:[phone] tel:[phone] Arthritis Arthritis [facility] 9 5794 PLLC, 5794 PLLC [facility], [place], [place], [id number], [place]. [place] tel:[phone] tel:[phone] Arthritis Arthritis [facility] 9 5794 PLLC, 5794 PLLC [facility], [place], [id number], [id number], [place]. [place] tel:[phone] tel:[phone] Arthritis Arthritis Raynaud's Sep-0 Peggy Specialist: [facility] syndrome 6-201 [facility] without 9 5794 MD, 1259 PLLC, 5794 PLLC gangreneRheu [facility] [address], [facility] arthritis w [place], [place], [place], [place], [address]. [place], mult site w/o [place], tel:[phone] [place], org/sys [id number], [id number] [id number], involvSicca [place]. lting [place] syndrome, tel:[phone] Provider: tel:[phone] unspecifiedOth Juan Ge [id number] er terminal supervisor Stacy MEYER, (current) drug 16 therapyAbnorma [place], [address]. tel:[phone] alist: Eufemia Atkinson MD, [address] [facility], [address] [facility], [place], [address]. tel:[phone] ring Provider: Lesley Combs MD, [address] [place], [place], [id number]. tel:[phone] Arthritis Arthritis Vitamin D May- Peggy Specialist: [facility] deficiency, 8-201 PASaud Vega [facility] unspecifiedRay 9 5794 , 1259 PLLC, 5794 PLLC naud's [facility] [address], [facility] syndrome [place], [place], [place], [place], [address]. [place], gangreneRheu [place], tel:[phone] [place], arthritis w [id number], [id number] [id number], rheu factor [place]. lting [place] [facility] w/o tel:[phone] Provider: tel:[phone] org/sys [id number] Kumar MD, syndrome, 16 unspecifiedOth [address] er halfway [address] Lukas Santos, (current) [place], therapy [address]. tel:[phone] alist: Eufemia Atkinson MD, [address] [facility], [address] [facility], [place], [address]. tel:[phone] ring Provider: Lesley Combs MD, [address] [place], [place], [id number]. tel:[phone] Arthritis Arthritis Rheu arthritis Peggy Specialist: [facility] factor 7- CHRISTIANNE Kay. [facility] site w/o 9 5794 , 1259 PLLC, 5794 PLLC org/sys [facility] [address], [facility], [place], [place], syndrome, [place], [address]. [place], unspecifiedRay [place], tel:[phone] [place], naud's [id number], [id number] [id number], syndrome [place]. lting [place] without tel:[phone] Provider: tel:[phone] gangreneOther [id number] Joo [id number] terminal supervisor Stacy MEYER, (current) drug 16 therapyVitamin Claritza Mcneil deficiency, Dr Lukas Santos, [place], [address]. tel:[phone] alist: Eufemia Atkinson MD, [address] [facility], [address] [facility], [place], [address]. tel:[phone] [facility] Provider: Lesley Combs MD, [address] [place], [place], [id number]. tel:[phone] Arthritis Arthritis Rheu arthritis Peggy Specialist: [facility] factor 2 CHRISTIANNE Kay. [facility] site w/o 9 5794 , 1259 PLLC, 5794 PLLC org/sys [facility] [address], [facility], [place], [place], syndrome, [place], [address]. [place], unspecifiedRay [place], tel:[phone] [place], naavery's [id number], [id number] [id number], syndrome [place]. lting [place] without tel:[phone] Provider: tel:[phone] gangreneLong 282473 Joo [id number] term current Stacy MEYER, use of [address] Lukas Santos, halfway [place], (current) drug [address]. therapy tel:[phone] alist: Eufemia Atkinson MD, [address] [facility], [address] [facility], [place], [address]. tel:[phone] ring Provider: Lesley Combs MD, [address] [place], [place], [id number]. tel:[phone] Arthritis Arthritis Systemic lupus Sep-[address] [facility] erythematosus, Juan. Provider: Abhijit wadeRhe 8 5794 Joo PLLC, 5794 PLLC u arthritis w Angel Kumar MD, [facility], [address] [place], [facility] site w/o [place], [place], org/sys DONI, Dr Lukas Santos, [place], involvOther [id number], [place], [place], [id number], [place]. [address]. [place] (current) drug tel:+[phone] tel:+60 tel:[phone] therapySicca [id number] 033183 syndrome, alist: unspecified Eufemia Atkinson MD, [address] [facility], [address] [facility], [place], [address]. tel:[phone] ring Provider: Lesley Combs MD, [address] [place], [place], [id number]. tel:[phone] Arthritis Arthritis Sicca Anson-[address] [facility] syndrome, CHRISTIANNE Kay. Provider: Abhijit Sheikh 8 5794 [facility], 5794 PLLC ad[facility] MD, [facility] syndrome [place], [address] [place], without [place], [place], gangreneLong [place], [place], [place], term current [id number], [place], [place], [id number], [place]. [address]. [place] systemic tel:+ tel:+ tel:[phone] steroidOther [phone] [id number] [id number] terminal supervisor alist: (current) drug Derek therapy Armaan, [address], [place], [address]. tel:[phone] lting Provider: Joo Kumar MD, [address], [place], [address]. tel:[phone] alist: Eufemia Atkinson MD, [address] [facility], [address] [facility], [place], [address]. tel:[phone] ring Provider: Lesley Combs MD, [address] [facility], [place], [place], [id number]. tel:[phone] Arthritis Arthritis RA w/ [facility] rheumatoid 2-201 CHRISTIANNE Kay. Provider: Associates Associates factor of 8 5794 [facility], 5794 [facility] multiple sites Angel Palencia MD, [facility] w/o organ [place], [address] [place], involvementRay [place], [place], naud's [place], [place], [place], syndrome [id number], [place], [place], [id number], [place]. [address]. [place] gangreneSicca tel:+ tel:+ tel:+315 syndrome, [phone] [phone] unspecifiedLon alist: g term current Derek use of pooja Crook [address], (current) [place], [address]. tel:[phone] lting Provider: Joo Kumar MD, [address], [place], [address]. tel:[phone] ring Provider: Lesley Combs MD, [address] [place], [place], [id number]. tel:[phone] Arthritis Arthritis Raynaud's Nov-[address] [facility] syndrome CHRISTIANNE Kay. Provider: Abhijit Lacey without 7 5794 [facility], 5794 PLLC gangreneLong Angel Palencia MD, [facility] term current [place], [address] [place], use of [place], [place], systemic [place], Ave, [place], steroidOther [id number], [place], [place], [id number], [place]. [address]. [place] (current) drug tel:+[phone] tel:+315 tel:+[phone] therapySicca [id number] 672194 syndrome, alist: unspecifiedVit Derek Crook, deficiency [address], [place], [address]. tel:[phone] ring Provider: Lesley Combs MD, [address] [place], [place], [id number]. tel:[phone] Arthritis Arthritis Sicca Robert MEYER Consulting [facility] syndrome, Juan. Provider: Abhijit Lacey unspecifiedOth 7 5794 [facility], 5794 PLLC er terminal supervisor Angel Palencia MD, [facility] (current) drug [place], [address] [place], therapy [place], [place], [place], [place], [place], [id number], [place], [id number], [place]. [address]. [place] tel:+[phone] tel:+3152 tel:[phone] [id number] ring Provider: Lesley Combs MD, [address] [place], [place], [id number]. tel:[phone] Arthritis Arthritis RA w/ Lauryn Consulting [facility] rheumatoid MD [place]. Provider: Abhijit Lacey factor of 7 5794 [facility], 5794 PLLC multiple sites Angel Palencia MD, [facility] w/o organ [place], [address] [place], involvementOth [place], [place], er halfway [place], Ave, [place], (current) drug [id number], [place], [place], [id number], [place]. [address]. [place] syndrome, tel:+315 tel:+ tel:+315 unspecified [phone] 365774 ring Provider: Lesley Combs MD, 5[address] [facility] [place], [place], [place], [id number]. tel:+ [phone] Arthritis Arthritis Systemic lupus Lauryn Consulting [facility] erythematosus, MD [place]. Provider: Associates Abhijit unspecifiedSic 7 5794 [facility], 5794 PLLC ca syndrome, Angel Palencia MD, [facility] unspecifiedRay [place], [address] [place], naud's [place], [place], syndrome [place], [place], [place], without [id number], [place], [place], [id number], [place]. [address]. [place] toid tel:+ tel: tel:+ arthritis, [phone] 135476 unspecifiedOth ring er terminal supervisor Provider: (current) drug Lesley Combs term current MD, 5794 use of [facility] systemic [place], steroidAtaxia, [place], unspecified [place], [id number]. tel:+ [phone] Arthritis Arthritis RA / Asher MEYER Consulting [facility] rheumatoid 3 Dodji. 310 Provider: Associates Associates factor of [address] [facility], 5794 PLLC multiple sites Talha Parmar MD, [facility] w/o organ [place], [address] [place], involvementSys [place], [place], temic lupus [id number], Ave, [place], erythematosus, [place]. [place], [id number], unspecifiedSic tel:+ [phone]. [place] ca syndrome, 635163 tel:+ tel:+ unspecifiedRay [phone] 312892 naud's ring syndrome Provider: without Salvador hortagreneNithya soriano MD, [address] (current) drug [address], therapyAtaxia, [place], unspecified [place], [id number]. tel:+ [phone] Arthritis Arthritis RA w/ Asher MEYER Consulting [facility] rheumatoid [facility]. 310 Provider: Associates Associates factor of [address] [facility], 5794 PLLC multiple sites Talha Parmar MD, [facility] w/o organ [place], [address] [place], involvementSys [place], [place], temic lupus [id number], Ave, [place], erythematosus, [place]. [place], [id number], unspecifiedSic tel:+ [phone]. [place] ca syndrome, 053152 tel:+ tel:+ unspecifiedRay 127546Yniwq 160993 naud's ring syndrome Provider: without Salvador soriano MD, [address] (current) [address], therapy [place], [place], [id number]. tel: [phone] Arthritis Arthritis RA w/ Asher MEYER Consulting [facility] rheumatoid [facility]. 310 Provider: Associates Associates factor of [address] [facility], 5794 PLLC multiple sites Talha Parmar MD, [facility] w/o organ [place], [address] [place], involvementSys [place], [place], temic lupus [id number], Ave, [place], erythematosus, [place]. [place], [place], [id number], unspecifiedOth tel:+ [phone]. [place] er halfway 071089 tel: tel:+315 (current) drug [phone] [id number] therapy ring Provider: Salvador Sterling MD, [address], [place], [place], [id number]. tel:+ [phone] Arthritis Arthritis Rheumatoid Asher MEYER Consulting [facility] arthritis, [facility]. 310 Provider: Associates Associates unspecifiedSys [address] [facility], 5794 PLLC temic lupus Talha Parmar MD, [facility] erythematosus, [place], [address] [place], unspecifiedSic [place], [place], ca syndrome, [id number], Ave, [place], unspecifiedRay [place]. [place], [place], [id number], naud's tel:+ [phone]. [place] syndrome 738393 tel:+ tel:+ without [phone] 845397 gangreneAntiph ring ospholipid Provider: syndromeEncoun Salvador Foley MD, [address], monitoring [place], [place], [id number]. tel: [phone] Arthritis Arthritis RA w/ Asher MEYER Consulting [facility] rheumatoid [facility]. 310 Provider: Associates Associates factor of [address] [facility], 5794 PLLC multiple sites Talha Parmar MD, [facility] w/o organ [place], [address] [place], involvementSys [place], [place], temic lupus [id number], Ave, [place], erythematosus, [place]. [place], [place], [id number], unspecifiedSic tel:+ [phone]. [place] ca syndrome, 943994 tel: tel: unspecifiedRay [id number] 311953 naud's ring syndrome Provider: without Salvador gangreneEncoun Asher juan MD, [address], drug level [place], monitoring [place], [id number]. tel:+ [phone] Arthritis Arthritis Asher MEYER Referring [facility]. 310 Provider: Associates Associates [address] Dodji PLLC, 5794 PLLC Asher Parmar MD, [address] [place], [place], [address], [place], [id number], [place], [place], [id number], tel:[phone]. [place] 688483 tel:+ tel:+ [phone] Family History Family Member Diagnosis Age At Onset Father Cancer, esophageal Immunizations Vaccine Date Status Comments Pneumococcal polysaccharide administered Source: Source Unspecified PPV23 Influenza, split virus, administered Source: Source Unspecified injectable, 3 years and older Fluvirin Payers Payer name Insurance type Covered libertarian ID Authorization(s) Ameena VICTORIA [id number] Social History Type Description Quantity Date Captured [...] Referral Referred To: ordered Teri Mendoza [address] [place], [address] [phone] Ordered: Referrals: Neurology. Teri Mendoza. Consult Appointment [...]
--- OUTSIDE RECORDS SUMMARY | 2019-05-07 10:25 | XMS REPORT | Continuity of Care Document ---
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 Sicca syndrome, unspecified Other watermaster (current) drug therapy Abnormal weight loss Cough Vitamin D deficiency, unspecified Raynaud's syndrome without gangrene 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 Sicca syndrome, unspecified Other fdc (current) drug therapy 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 Sicca syndrome, unspecified Raynaud's syndrome without gangrene Other watermaster (current) drug therapy Vitamin D deficiency, unspecified 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 Sicca syndrome, unspecified 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 Systemic lupus erythematosus, unspecified 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 Other watermaster (current) drug therapy Sicca syndrome, unspecified Sicca syndrome, unspecified Raynaud's syndrome without gangrene [facility] current use of systemic steroid Other watermaster (current) drug therapy 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 Raynaud's syndrome without gangrene Sicca syndrome, unspecified 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 Sicca syndrome, unspecified Vitamin D deficiency Sicca syndrome, unspecified Other fdc (current) drug therapy 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 Other watermaster (current) drug therapy Sicca syndrome, unspecified Systemic lupus erythematosus, unspecified Sicca syndrome, unspecified Raynaud's syndrome without gangrene Rheumatoid arthritis, unspecified Other watermaster (current) drug therapy [facility] current use of systemic steroid Ataxia, 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 Systemic lupus erythematosus, unspecified Sicca syndrome, unspecified Raynaud's syndrome without gangrene Other watermaster (current) drug therapy Ataxia, 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, [place], [id number], [id number], [place]. [place] tel:[phone] tel:[phone] [facility] 9 5794 PLLC, 5794 PLLC [facility], [place], [place], [id number], [id number], [place]. [place] tel:[phone] tel:[phone] Arthritis Arthritis 0 [facility] 9 5794 PLLC, [address] [facility], [place], [id number], [id number], [place]. [place] tel:[phone] tel:[phone] Arthritis Arthritis 0 [facility] 9 5794 PLLC, 5794 PLLC [facility], [place], [place], [id number], [id number], [place]. [place] tel:[phone] tel:[phone] Arthritis Arthritis Raynaud's Sep- [facility] Specialist: Health Health syndrome 6 [facility] without 9 5794 MD, 1259 PLLC, 5794 PLLC gangreneRheu [facility] [address], [facility] arthritis w [place], [place], [place], [place], [address]. [place], [facility] site w/o [place], tel:[phone] [place], [facility]/sys [id number], [id number] [id number], involvSicca [place]. lting [place] syndrome, tel:[phone] Provider: tel:[phone] unspecifiedOth [id number] Joo [id number] er fdc Stacy MEYER, (current) drug 16 therapyAbnorma [place] [address], [place], [address]. tel:[phone] alist: Eufemia Atkinson MD, [address] [facility], [address] [facility], [address]. tel:[phone] ring Provider: Lesley Combs MD, [address] [place], [place], [id number]. tel:[phone] [facility]ritis [facility] 9 5794 PLLC, 5794 PLLC [facility], [place], [place], [place], [id number], [id number], [place]. [place] tel:[phone] tel:[phone] Arthritis Arthritis Vitamin D July- [facility] Specialist: [facility] deficiency, [facility] unspecifiedRay 9 5794 , 1259 PLLC, 5794 PLLC naud's [facility] [address], [facility] syndrome [place], [place], [place], [place], [address]. [place], gangreneRheu [place], tel:[phone] [place], arthritis w [id number], [id number] [id number], [facility] [place]. lting [facility] site w/o tel:[phone] Provider: tel:[phone] org/sys [phone] Joo [id number] Kumar MD, syndrome, 16 unspecifiedOth [place] er fdc Dr Lukas Santos, (current) drug [place], therapy [address]. tel:[phone] alist: Eufemia Atkinson MD, [address] [facility], [address] [facility], [place], [address]. tel:[phone] ring Provider: Lesley Combs MD, [address] [place], [place], [id number]. tel:[phone] Arthritis Arthritis [facility] arthritis Peggy Specialist: Health Health [facility] factor 7-201 CHRISTIANNE Kay. Ricardo [facility] site w/o 9 5794 , 1259 PLLC, 5794 PLLC org/sys [facility] [address], [facility] involvSicca [place], [facility], syndrome, [place], [address]. [place], unspecifiedRay [place], tel:[phone] [place], naud's [id number], [id number] [id number], syndrome [place]. lting [place] without tel:[phone] Provider: tel:[phone] gangreneOther [id number] Martinez fdc Stacy MEYER, (current) drug 16 therapyVitamin [place] D deficiency, Dr Lukas Santos, [place], [address]. tel:[phone] alist: Eufemia Atkinson MD, [address] [facility], [address] [facility], [place], [address]. tel:[phone] ring Provider: Lesley Combs MD, [address] [place], [place], [id number]. tel:[phone] Arthritis Arthritis Rheu arthritis Trevor-0 Peggy Specialist: [facility] factor 2- CHRISTIANNE Vega [facility] site w/o 9 5794 , 1259 PLLC, 5794 PLLC org/sys [facility] [address], [facility] involvSicca [place], [place], [place], syndrome, [place], [address]. [place], unspecifiedRay [place], tel:[phone] [place], naud's [id number], [id number] [id number], syndrome [place]. lting [place] without tel:+[phone] Provider: tel:[phone] gangrenTrenton [phone] Joo 512118 term current Stacy MEYER, use of [address] Lukas Santos, fdc [place], [place], (current) drug [address]. therapy tel: [phone] alist: Eufemia Atkinson MD, [address] [facility], [address] [facility], [place], [address]. tel:[phone] ring Provider: Lesley Combs MD, [address] [place], [place], [id number]. tel:+ [phone] Arthritis Arthritis Systemic lupus Sep-0 Robert MEYER Consulting [facility], Juan. Provider: Abhijit Lacey unspecNort[facility] Regional Hospitale 8 5794 Joo PLLC, 5794 PLLC u arthritis w Angel Kumar MD, [facility], 16 [place], [facility] site w/o [place], [place], org/sys DONI, Dr Lukas Santos, [place], involvOther [id number], [place], [place], [id number], [place]. [address]. [place] (current) drug tel:+[phone] tel:+[phone] tel:[phone] therapySicca [phone] 830739 syndrome, alist: unspecified Eufemia Atkinson MD, [address] [facility], [address] [facility], [place], [address]. tel:[phone] ring Provider: Lesley Combs MD, [address] [place], [place], [id number]. tel:[phone] Arthritis Arthritis Sicca Anson-0 [facility] syndrome, 6 CHRISTIANNE Kay. Provider: Abhijit Lacey unspecifiedRay 8 5794 Vicente PLLC, 5794 PLLC adeola'chris Palencia MD, [facility] syndrome [place], [address] [place], without [place], Standart [place], gangreneLong [place], Ave, [place], term current [id number], [place], [place], [id number], [place]. [address]. [place] systemic tel:+[phone] tel:+[phone] tel:[phone] steroidOther [id number] [id number] watermaster alist: (current) drug Derek Crook, [address], [place], [address]. tel:[phone] lting Provider: Joo Kumar MD, [address] [facility] [place], [address]. tel:[phone] alist: Eufemia Atkinson MD, [address] [facility], [address] [facility], [place], [address]. tel:[phone] ring Provider: Lesley Combs MD, [address] [place], [place], [id number]. tel:[phone] Arthritis Arthritis RA w/ Apr- [facility] rheumatoid 2 CHRISTIANNE Kay. Provider: Abhijit Lacey factor of 8 5794 Vicente PLLC, 5794 PLLC multiple sites Angel Palencia MD, [facility] w/o organ [place], [address] [place], involvementRay [place], Standart [place], naud's [place], Ave, [place], syndrome [id number], [place], [place], [id number], [place]. [address]. [place] gangreneSicca tel:[phone] tel:+ tel:[phone] syndrome, [phone] [id number] unspecifiedLon alist: g term current Derek use of Armaan, systemic [address], (current) [place], [address]. tel:[phone] lting Provider: Joo Kumar MD, [address] [place], [address]. tel:[phone] ring Provider: Lesley Combs MD, [address] [place], [place], [id number]. tel:[phone] Arthritis Arthritis Raynaud's Jeremyi Consulting [facility] syndrome CHRISTIANNE Kay. Provider: Abhijit Lacey without 7 5794 [facility] PLLC, 5794 PLLC gangreneLong Angel Palencia MD, [facility] term current [place], [address] [place] [address], use of [place], Standart [place], systemic [place], Ave, [place], steroidOther [id number], [place], [place], [id number], [place]. [address]. [place] (current) drug tel:315 tel: tel:+[phone] therapySicca [phone] 126064Pnilo 396687 syndrome, alist: unspecifiedVit Derek Crook, deficiency [address] [place], [address]. tel:[phone] ring Provider: Lesley Combs MD, [address] [place], [place], [id number]. tel:[phone] Arthritis Arthritis Sicca Robert MEYER Consulting [facility] syndrome, Juan. Provider: Abhijit Lacey unspecifiedOth 7 5794 [facility] PLLC, 5794 PLLC er watermaster Angel Palencia MD, [facility] (current) drug [place], [address] [place], therapy [place], [place], [place], [place], [place], [id number], [place], [place], [id number], [place]. [address]. [place] tel: tel: tel:[phone] [id number] ring Provider: Lesley Combs MD, [address] [place], [place], [id number]. tel:[phone] Arthritis Arthritis RA w/ Lauryn Consulting [facility] rheumatoid MD [place]. Provider: Associates Associates factor of 7 5794 Vicente PLLC, 5794 PLLC multiple sites Angel Palencia MD, [facility] w/o organ [place], [address] [place], involvementOth [place], Standart [place], er watermaster [place], Ave, [place], (current) drug [id number], [place], [place], [id number], [place]. [address]. [place] syndrome, tel: tel: tel: unspecified [phone] [id number] ring Provider: Lesley Combs MD, [address] [facility], [place], [place], [id number]. tel:[phone] Arthritis Arthritis Systemic lupus [facility] Er Consulting [facility] erythematosus, MD [place]. Provider: Associates Abhijit unspecifiedSic 7 5794 Vic[facility] PLLC, 5794 PLLC ca syndrome, Angel Palencia MD, [facility] unspecifiedRay [place], [address] [place], naud's [place], Standart [place], syndrome [place], Ave, [place], without [id number], [place], [place], [id number], [place]. [address]. [place] toid tel: tel: tel:+ [phone], [phone] 298253 unspecifiedOth ring er watermaster Provider: (current) drug Lesley soriano current MD, 5794 use of [facility] systemic [place], steroidAtaxia, [place], unspecified [place], [id number]. tel:+ [phone] Arthritis Arthritis RA w/ Asher MEYER Consulting [facility] rheumatoid 3 [facility]. 310 Provider: Associates Associates factor of 6 S Adam Vicente PLLC, 5794 PLLC multiple sites Talha Parmar MD, [facility] w/o organ [place], [address] [place], involvementSys [place], Standart [place], temic lupus [id number], Ave, [place], erythematosus, [place]. [place], [place], [id number], unspecifiedSic tel:+ [phone]. [place] ca syndrome, 4449[address] tel:+ tel:+[phone] unspecifiedRay [phone] 732131 naud's ring syndrome Provider: without Salvador soriano MD, [address] (current) [address], therapyAtaxia, [place], unspecified [place], [id number]. tel:+ [phone] Arthritis Arthritis RA w/ Asher MEYER Consulting [facility] rheumatoid [facility]. 310 Provider: Associates Associates factor of 6 S Adam [facility]ente PLLC, 5794 PLLC multiple sites Talha Parmar MD, [facility] w/o organ [place], [address] [place], involvementSys [place], Standart [place], temic lupus [id number], Ave, [place], erythematosus, [place]. [place], [place], [id number], unspecifiedSic tel:+ [phone]. [place] ca syndrome, [address] tel:+ tel:+ unspecifiedRay 583610Vxfne 323724 naud's ring syndrome Provider: without Salvador soriano MD, [address] (current) [address], therapy [place], [place], [address]. tel:+ [phone] Arthritis Arthritis RA w/ Asher MEYER Consulting [facility] rheumatoid [facility]. 310 Provider: Associates Associates factor of 6 S Adam [facility] PLLC, 5794 PLLC multiple sites Talha Parmar MD, [facility] w/o organ [place], [address] [place], involvementSys [place], Stand[place], temic lupus [id number], Ave, [place], erythematosus, [place]. [place], [place], [id number], unspecifiedOth tel:+ [phone]. [place] er watermaster 213033 tel: tel: (current) drug [phone] 484691 therapy ring Provider: Salvador Sterling MD, [address], [place], [place], [id number]. tel:+ [phone] Arthritis Arthritis Rheumatoid Mar-0 Asher MEYER Consulting [facility] arthritis, [facility]. 310 Provider: Associates Associates unspecifiedSys 6 S Adam Vicente PLLC, 5794 PLLC temic lupus Talha Parmar MD, [facility] erythematosus, [place], [address] [place], unspecifiedSic [place], Stand[place], ca syndrome, [id number], Ave, [place], unspecifiedRay [place]. [place], [place], [id number], naud's tel:+ [phone]. [place] syndrome 029500 tel: tel: without [phone] [phone] gangreneAntiph ring ospholipid Provider: Kaylin Foley MD, [address], monitoring [place], [place], [address]. tel: [phone] Arthritis Arthritis RA w/ Asher MEYER Consulting [facility] rheumatoid [facility]. 310 Provider: Associates Associates factor of 5 S Adam Vicente PLLC, 5794 PLLC multiple sites Talha Parmar MD, [facility] w/o organ [place], [address] [place], involvementSys [place], Stand[place], temic lupus [id number], Ave, [place], erythematosus, [place]. [place], [place], [id number], unspecifiedSic tel:+ [phone]. [place] ca syndrome, [address] tel: tel: unspecifiedRay 401068Cgvbn 018522 naud's ring syndrome Provider: monica hortagreneEncoun Asher juan MD, [address], drug level [place], monitoring [place], [id number]. tel: [phone] Arthritis Arthritis Fe- Asher MEYER Referring [facility] 6-201 [facility]. 310 Provider: Associates Associates [address] Adam Franco [facility], 5794 [facility] Asher [facility] center[facility] Simental MD, [address] [place], [place], Kamille [place], [id number], [place], [place], [place]. [place], [id number], tel:[phone]. [place] 77[address]68 tel:+[phone] tel:[phone] 773506 Family History Family Member Diagnosis Age At Onset Father Cancer, esophageal Immunizations Vaccine Date Status Comments Pneumococcal polysaccharide administered Source: Source Unspecified PPV23 Influenza, split virus, administered Source: Source Unspecified injectable, 3 years and older Fluvirin Payers Payer name Insurance type Covered green party ID Authorization(s) [facility] [id number] Social History Type Description Quantity Date Captured [...] Referred To: ordered Teri Mendoza [address] [place], [address] [id number] Ordered: Referrals: Neurology. Teri Mendoza. Consult Appointment [...] worsen maintain adequate water intake every day call if symptoms worsen maintain adequate water intake every day Discussed / Reviewed Labs Risks/benefits of medications reviewed Avoid sun and use high SPF sunblock Discussed importance of holding DMARDs/ biologics if patient develops an infection and to notify the treating physician Labs ordered to check disease activity. Labs ordered to check blood counts, liver and kidney functions to monitor safety of medication. Reviewed importance of compliance/adherence to medications prescribed Diet: avoid alcohol Avoid live vaccines Diet: avoid alcohol Avoid live vaccines Risks/benefits of medications reviewed Avoid sun and use high SPF sunblock Discussed importance of holding DMARDs/ biologics if patient develops an infection and to notify the treating physician Reviewed importance of compliance/adherence to medications prescribed Labs ordered to check disease activity. Labs ordered to check blood counts, liver and kidney functions to monitor safety of medication. Discussed / Reviewed Labs call if symptoms worsen maintain adequate water intake every day Maintain adequate core warmth. Wear warm, wind-proof gloves and boots. Discussed / Reviewed Labs Labs ordered to check blood counts, liver and kidney functions to monitor safety of medication. Patient plan printed and given along with recommendations lower mtx to 4 weekly Risks/benefits of medications reviewed Avoid sun and use high SPF sunblock For sleep, the need to add adequate relaxation, rest and exercise was discussed Labs ordered to check disease activity. Reviewed importance of compliance/adherence to medications prescribed Diet: avoid alcohol Discussed / Reviewed Labs call if symptoms worsen maintain adequate water intake every day Labs ordered to check blood counts, liver and kidney functions to monitor safety of medication. Avoid live vaccines Risks/benefits of medications reviewed Discussed importance of holding DMARDs/ biologics if patient develops an infection and to notify the treating physician Labs ordered to check disease activity. Reviewed importance of compliance/adherence to medications prescribed Diet: avoid alcohol Avoid live vaccines Risks/benefits of medications reviewed Avoid sun and use high SPF sunblock call if symptoms worsen Maintain adequate core warmth. Wear warm, wind-proof gloves and boots. maintain adequate water intake every day Discussed importance of holding DMARDs/ biologics if patient develops an infection and to notify the treating physician Diet: Instructed on appropriate calcium and vitamin D intake. Labs ordered to check disease activity. Labs ordered to check blood counts, liver and kidney functions to monitor safety of medication. Discussed / Reviewed Labs Patient plan printed and given along with recommendations Labs ordered to check blood counts, liver and kidney functions to monitor safety of medication. Labs ordered to check disease activity. Reviewed [...] intake every day call if symptoms worsen lower mtx to 8 week.readd prednisone to 5mg day Risks/benefits of medications reviewed Discussed importance [...]
[2019-05-07 11:08] VITALS: BP 110/60
--- NOTE | 2019-05-07 12:18 | UC ---
UC General HPI - HPI Summary HPI Summary: 58-year-old woman comes in with a chief complaint of left hip pain. 5 days ago patient slipped on the ice and fell on her left side. She struck her left head left hand and left hip. She reports she has some swelling on the left side of her head it's improved. Denies any loss of consciousness or any continued head pain or any neurologic symptoms. On her left hand she's had surgeries for trigger finger of her left thumb and since the fall she has had some decreased range of motion in the thumb. Patient continues to have pain in the left hip over the greater trochanter with some radiation of the pain up towards the back and occasionally down the leg. No complaint of any weakness or numbness. Patient's been putting cold on the left hip which does help some. - History of Current Complaint Chief Complaint: UCLowerExtremity Stated Complaint: LT HIP PAIN Time Seen by Provider: 05/07/19 12:15 Hx Last Menstrual Period: age 44 Pain Intensity: 7 - Allergy/Home Medications Allergies/Adverse Reactions: Allergies Allergy/AdvReac Type Severity Reaction Status Date / Time Adhesive Tape Allergy Rash Verified 05/07/19 11:08 Home Medications: Home Medications Varenicline Tartrate [Chantix] 1 dose PO DAILY 05/07/19 [History Confirmed 05/07] PMH/Surg Hx/FS Hx/Imm Hx Previously Healthy: Yes - rheumatoid arthritis, GI/ History: Gastroesophageal Reflux - Surgical History Surgical History: Yes Surgery Procedure, Year, and Place: 1981, [facility]. carpal tunnel x4 hong, [facility] Other Surgical History: Left thumb surgery with Dr. Roberts - Family History Known Family History: Positive: Hypertension - Social History Alcohol Use: Rare Alcohol Amount: social Substance Use Type: Marijuana Substance Use Comment - Amount & Last Used: Will smoke marijuana for pain Smoking Status (MU): Former Smoker Amount Used/How Often: pack q 3 days When Did the Patient Quit Smoking/Using Tobacco: 03/2014 - Immunization History Hx Tetanus, Diphtheria Vaccination: Yes Vaccination Up to Date: Yes Review of Systems All Other Systems Reviewed And Are Negative: Yes Constitutional: Positive: Negative Skin: Positive: Negative Eyes: Positive: Negative ENT: Positive: Negative Respiratory: Positive: Negative Cardiovascular: Positive: Negative Motor: Positive: Other - SEE HPI Neurovascular: Positive: Negative Musculoskeletal: Positive: Other: - SEE HPI Neurological/Mental Status: Positive: Other - SEE HPI Psychological: Positive: Negative Is Patient Immunocompromised?: No Physical Exam Triage Information Reviewed: Yes Appearance: Well-Appearing, Well-Nourished, Pain Distress - MILD WITH ROM AND EXAM OF LEFT HIP Vital Signs: Initial Vital Signs Temp 97.9 F 05/07/19 11:05 Pulse 66 05/07/19 11:05 Resp 18 05/07/19 11:05 BP 110/60 05/07/19 11:05 Pulse Ox 98 05/07/19 11:05 Vital Signs Reviewed: Yes Eye Exam: Normal Eyes: Positive: Conjunctiva Clear Neck: Positive: Supple Respiratory: Positive: Lungs clear, Normal breath sounds, No respiratory distress Cardiovascular: Positive: RRR Musculoskeletal: Positive: Other: - Left thumb is decreased in flexion range of motion when compared to the right thumb. Otherwise the thumb has normal sensation and strength and capillary refill. Left wrist has full range of motion. Left hip has full range of motion . There is tenderness over the greater trochanter and posterior to the greater trochanter. Patient denies any tenderness to palpation up into the low back. Normal strength and sensation in the legs. Neurological: Positive: Alert Psychological: Positive: Age Appropriate Behavior Skin Exam: Normal Course/Dx - Course Course Of Treatment: Property Site Manager: Heraclio Clayton F ([id number]) Calciner Feeder: LIS ( LIS) Report Date: 05/07/2019 12:16:00 Report Status: Final ====== Start of Report Content Patient Name: MIGUELITO CHAMBERLAIN Medical Record#: [id number] Ordering Physician: Matt Figueroa MD Acct.#: [id number] : Age: 58 Sex: F Location: [facility] Exam Date: 05/07/19 1154 ADM Status: REG ER Order Information: HIP LEFT 2 VIEWS AND PELVIS Accession Number: [id number] CPT: 08672 INDICATION: Left hip injury. COMPARISON : There are no relevant prior studies available for comparison. TECHNIQUE: An AP view of the pelvis and frontal and lateral views of the left hip were obtained. FINDINGS: The bones are in normal alignment. No fracture is seen. Joint spaces appear maintained. IMPRESSION: NO EVIDENCE FOR FRACTURE, IF THE PATIENT'S SYMPTOMS PERSIST RECOMMEND FOLLOW-UP IMAGING. <Electronically signed by Heraclio Clayton MD in OV> 05/07/19 121 Dictated By: Heraclio Clayton MD Dictated Date/Time: 03/14 Transcribed Date/Time: 05/07/191211 Copy to: CC:Moises Rosario MD ; Matt Figueroa MD Imaging - [facility] [place] - [facility] [address] [place] [address] ph [phone]) ph ([phone]) ph ([phone]) ==== End of Report Content I discussed the left hip x-rays with the patient. No fracture seen. Patient declined x-rays of the left thumb stating she is planning on following up with the orthopedist Dr. Roberts for the thumb. Plan is to continue the eyes use lidocaine patch for the left hip. Patient reports she already takes a muscle relaxer. Patient reports she cannot take NSAIDs. The plan is to follow-up with Dr. Roberts for her hand. She plans on speaking with him about her hip at the same time. She declined time off of work at this time. - Diagnoses Provider Diagnosis: Left hip pain, Left thumb sprain Discharge ED - Sign-Out/Discharge Documenting (check all that apply): Patient Departure All imaging exams completed and their final reports reviewed: Yes - Discharge Plan Condition: Stable Disposition: HOME Patient Education Materials: Finger Sprain (ED), Hip Pain (ED) Referrals: Moises Rosario MD [Primary Care Provider] - Joo Roberts MD [Medical Doctor] - Additional Instructions: FOLLOW UP WITH DR ROBERTS, ORTHOPEDICS. GET REEVALUATED SOONER IF NOT IMPROVED OR WORSE OR ANY QUESTIONS OR CONCERNS. - Billing Disposition and Condition Condition: STABLE Disposition: Home
== END 2019-05-07 12:39 | disposition home or self-care (01) ==
LOC: UCCORT 10:13
DX: M25.552 Pain in left hip (principal); S63.602A Unspecified sprain of left thumb, initial encounter; M06.9 Rheumatoid arthritis, unspecified; Z91.09 Other allergy status, other than to drugs and biological substances; Z87.891 Personal history of nicotine dependence; W00.0XXA Fall on same level due to ice and snow, initial encounter; Y92.9 Unspecified place or not applicable
CPT/HCPCS: 99211; G0463

== ENCOUNTER 2019-05-28 08:53 | Emergency (ER) | payer BC, OTHER ==
[2019-05-28 09:28] VITALS: BP 98/55
--- NOTE | 2019-05-28 10:46 | UC ---
Shoulder Pain HPI - HPI Summary HPI Summary: left shoulder pain x 2 days pain is 6 out of 10 , worse with lifting her arm above her head better with Tylenol injury to her left shoulder as she was lifting something heavy felt a bandar pain with any rom , weakness of her left shoulder - History of Current Complaint Chief Complaint: UCUpperExtremity Stated Complaint: LT SHOULDER INJURY - WC Time Seen by Provider: 05/28/19 09:38 Hx Obtained From: Patient Hx Last Menstrual Period: age 44 Onset/Duration: Sudden Onset, Lasting Days - 2, Still Present Timing: Constant Severity Initially: Moderate Severity Currently: Moderate Location Of Pain: Is Discrete @ - left shoulder Pain Intensity: 7 Pain Scale Used: 0-10 Numeric Character: Aching Aggravating Factor(s): Lifting, Flexion, Extension Alleviating Factor(s): Rest Associated Signs And Symptoms: Positive: Weakness. Negative: Swelling, Redness , Bruising, Fever, Numbness/Tingling - Allergies/Home Medications Allergies/Adverse Reactions: Allergies Allergy/AdvReac Type Severity Reaction Status Date / Time Adhesive Tape Allergy Rash Verified 05/28/19 09:21 Home Medications: Home Medications Folic Acid TAB* [Folvite TAB*] 1 mg PO BID 08/05/14 [History Confirmed 05/28/19] Hydroxychloroquine TAB* [Plaquenil TAB*] 200 mg PO QAM 08/05/14 [History Confirmed 05/28/19] Methotrexate TAB* 10 mg PO WE 08/05/14 [History Confirmed 05/28/19] Aspirin [Aspirin Adult Low Dose 81 MG] 81 mg PO QAM 01/25/15 [History Confirmed 05/28/19] Nabumetone TAB* [Relafen TAB*] 750 mg PO QPM 04/10/17 [History Confirmed ] hydrOXYzine HCL [Hydroxyzine HCl] 10 mg PO BID 04/10/17 [History Confirmed 05/27] predniSONE 5 mg TAB [Deltasone 5 mg TAB] 5 mg PO QAM 08/14/17 [History Confirmed 05/28/19] Albuterol HFA INHALER* [Ventolin HFA Inhaler*] 2 puff INH Q4H PRN 14 Days #1 mdi 05/04/18 [Rx Confirmed 05/28/19] Omeprazole 40 mg PO QAM 02/21/19 [History Confirmed 05/28/19] Pramipexole [Mirapex] 0.5 mg PO QPM 02/21/19 [History Confirmed 05/28/19] Varenicline Tartrate [Chantix] 1 dose PO DAILY 05/07/19 [History Confirmed 05/27] HYDROcodone/ACETAMIN 5-325 MG* [[place] 5-325 TAB*] 1 tab PO ONCE 05/28/19 [ History Confirmed 05/28/19] Hydroxychloroquine TAB* [Plaquenil TAB*] 100 mg PO QPM 05/28/19 [History Confirmed 05/28/19] Penicillin VK TAB* [Penicillin VK 250 mg Tab*] 500 mg PO TID 05/28/19 [History Confirmed 05/28/19] PMH/Surg Hx/FS Hx/Imm Hx - Additional Past Medical History Additional PMH: Lupus, Pneumonia, RA, Raynaud's, Sjogren's Respiratory History: COPD - Surgical History Surgical History: Yes Surgery Procedure, Year, and Place: 1981, [place]. carpal tunnel x4 [place], [facility] [place] Other Surgical History: Left thumb surgery with Dr. Kumar - Family History Known Family History: Positive: Hypertension - Social History Alcohol Use: Rare Alcohol Amount: social Substance Use Type: Marijuana Substance Use Comment - Amount & Last Used: PRN Pain Smoking Status (MU): Former Smoker Type: Cigarettes Amount Used/How Often: pack q 3 days Length of Time of Smoking/Using Tobacco: 1 PPD x 41 Years When Did the Patient Quit Smoking/Using Tobacco: 2014 - Immunization History Hx Tetanus, Diphtheria Vaccination: Yes Vaccination Up to Date: Yes Review of Systems All Other Systems Reviewed And Are Negative: Yes Is Patient Immunocompromised?: No Physical Exam Triage Information Reviewed: Yes Appearance: Well-Nourished, Pain Distress Vital Signs: Initial Vital Signs Temp 98.4 F 05/28/19 09:20 Pulse 66 05/28/19 09:20 Resp 16 05/28/19 09:20 BP 98/55 05/28/19 09:20 Pulse Ox 99 05/28/19 09:20 Vital Signs Reviewed: Yes Eye Exam: Normal Eyes: Positive: Conjunctiva Clear ENT: Positive: Normal ENT inspection, Hearing grossly normal, Pharynx normal Neck exam: Normal Neck: Positive: Supple, Nontender, No Lymphadenopathy Respiratory: Positive: Chest non-tender, Lungs clear, Normal breath sounds Cardiovascular: Positive: RRR, No Murmur, Pulses Normal Musculoskeletal: Positive: Other: - left shoulder : no swelling, no erythem, diffuse tenderness, pain with flexion and abduction limited ROM on extension / abduction , limited strength Diagnostics - Radiology No standard instances Radiology Interpretation Completed By: Radiologist Summary of Radiographic Findings: xray report left shoulder : IMPRESSION: AC joint arthritis without evidence of fracture. Shoulder Course/Dx - Differential Dx/Diagnosis Provider Diagnosis: Rotator cuff sprain Discharge ED - Sign-Out/Discharge Documenting (check all that apply): Patient Departure All imaging exams completed and their final reports reviewed: Yes - Discharge Plan Condition: Stable Disposition: HOME Patient Education Materials: Rotator Cuff Injury (ED) Forms: *Work Release Referrals: Maldonado Roper MD [Medical Doctor] - As Soon As Possible Moises Rosario MD [Primary Care Provider] - - Billing Disposition and Condition Condition: STABLE Disposition: Home
== END 2019-05-28 10:25 | disposition home or self-care (01) ==
LOC: UCCORT 08:53
DX: S43.422A Sprain of left rotator cuff capsule, initial encounter (principal); M32.9 Systemic lupus erythematosus, unspecified; M06.9 Rheumatoid arthritis, unspecified; M35.00 Sjogren syndrome, unspecified; J44.9 Chronic obstructive pulmonary disease, unspecified; Z79.82 Long term (current) use of aspirin; Z87.891 Personal history of nicotine dependence; Z91.09 Other allergy status, other than to drugs and biological substances; Z79.899 Other long term (current) drug therapy; X58.XXXA Exposure to other specified factors, initial encounter; Y93.89 Activity, other specified; Y92.9 Unspecified place or not applicable
CPT/HCPCS: 99212; G0463